=== PATIENT | male | born 1970 | race Hispanic/Latino ===

== ENCOUNTER 2018-04-16 03:43 | Inpatient (IN) | payer OTHER ==
[2018-04-16 04:28] LABS: Basophils # (Auto) 0.1 K/mm3 (0.0-0.1); Basophils % (Auto) 2.4 % (0.0-1.8); Eosinophils # (Auto) 0.1 K/mm3 (0.0-0.4); Eosinophils % (Auto) 2.5 % (0.0-4.3); Hemoglobin 13.4 gm/dl (11.8-15.2); Lymphocytes # (Auto) 1.2 K/mm3 (1.2-5.4); Lymphocytes % (Auto) 21.3 % (13.4-35.0); Mean Corpuscular HGB Conc 34 % (32-34); Mean Corpuscular Hemoglobin 33 pg (28-32); Mean Corpuscular Volume 96 fl (84-94); Monocytes # (Auto) 0.6 K/mm3 (0.0-0.8); Monocytes % (Auto) 11.2 % (0.0-7.3); Red Blood Count 4.04 M/mm3 (3.65-5.03); Red Cell Distribution Width 15.4 % (13.2-15.2)
[2018-04-16 04:31] LABS: Platelet Count 69 K/mm3 (140-440)
[2018-04-16 04:47] LABS: BUN/Creatinine Ratio 9; Blood Urea Nitrogen 9 mg/dL (9-20); Calcium 9.9 mg/dL (8.4-10.2); Hemolysis Index 10
[2018-04-16] MEDS ORDERED: K-DUR PO ONE (07:11)
[2018-04-16] MEDS ORDERED: PEPCID IV ONE (07:19)
[2018-04-16] MEDS ORDERED: NACL 0.9% 250ML 250 ML IV ONE (07:19)
[2018-04-16] MEDS ORDERED: ALUM-MAG HYDROX-SIMETH 200-200-20MG/5ML PO ONE (07:19)
--- NOTE | 2018-04-16 07:21 | Emergency Department Report ---
ED General Adult HPI - General Chief complaint: Weakness Stated complaint: ABDOMINAL PAIN Time Seen by Provider: 04/16/18 07:10 Source: patient, RN notes reviewed Mode of arrival: Ambulatory Limitations: No Limitations - History of Present Illness Initial comments: This is a 47-year-old male who is unknown to this provider previously. He has a past medical history of hepatitis C. He reports abdominal surgery in 2016 but does not know what he had. He doesn't know why he had the surgery either. He presents to the ER with a complaint of abdominal pain that radiates up to the chest. It has been present for at least 16 hours. It is constant. It has no exacerbating or relieving factors. He denies vomiting, diaphoresis, shortness of breath. The patient further indicates that he walked a few miles yesterday to get to the emergency room. He denies DVT, pulmonary embolus risk factors. He also endorses that he doesn't have a safe place to go. He denies urinary symptoms. -: Gradual Location: chest, back, abdomen Consistency: intermittent Improves with: none Worsens with: none Associated Symptoms: chest pain, loss of appetite, malaise, weakness. denies: confusion - Related Data Allergies Allergy/AdvReac Type Severity Reaction Status Date / Time No Known Allergies Allergy Unverified 04/16/18 04:05 ED Review of Systems ROS: Stated complaint: ABDOMINAL PAIN Other details as noted in HPI Constitutional: malaise Eyes: denies: eye discharge ENT: denies: epistaxis Respiratory: denies: cough Cardiovascular: chest pain Gastrointestinal: abdominal pain Genitourinary: denies: dysuria Musculoskeletal: arthralgia Neurological: weakness Psychiatric: anxiety ED Past Medical Hx - Past Medical History Hx Liver Disease: Yes Additional medical history: HEP C - Surgical History Additional Surgical History: ABD SURGERY 2016 - Social History Smoking Status: Former Smoker ED Physical Exam - General Limitations: No Limitations General appearance: alert, in no apparent distress - Head Head exam: Present: atraumatic, normocephalic - Eye Eye exam: Present: normal appearance, EOMI. Absent: nystagmus - ENT ENT exam: Present: normal exam, normal orophraynx, mucous membranes moist, normal external ear exam - Neck Neck exam: Present: normal inspection, full ROM. Absent: tenderness, meningismus - Respiratory Respiratory exam: Present: normal lung sounds bilaterally. Absent: respiratory distress - Cardiovascular Cardiovascular Exam: Present: regular rate, normal rhythm, normal heart sounds. Absent: bradycardia, tachycardia, irregular rhythm, systolic murmur, diastolic murmur, rubs, gallop - GI/Abdominal GI/Abdominal exam: Present: soft, other (there is a midline ventral scar, consistent with prior surgical history). Absent: distended, tenderness, guarding, rebound, rigid, pulsatile mass - Rectal Rectal exam: Present: deferred - Extremities Exam Extremities exam: Present: normal inspection, full ROM, normal capillary refill , other (2+ pulses noted in the bilateral upper, lower extremities. Compartments soft. No long bony tenderness. The pelvis is stable.). Absent: tenderness, pedal edema, joint swelling, calf tenderness - Back Exam Back exam: Present: normal inspection, full ROM. Absent: tenderness, CVA tenderness (R), paraspinal tenderness, vertebral tenderness - Neurological Exam Neurological exam: Present: alert, oriented X3, CN II-XII intact, other ( Extraocular movements intact. Tongue midline. No facial droop. Facial sensation intact to light touch in the V1, V2, V3 distribution bilaterally. 5 and 5 strength in 4 extremities.. Sensation is intact to light touch in 4 extremities.). Absent: motor sensory deficit - Psychiatric Psychiatric exam: Present: anxious - Skin Skin exam: Present: warm, dry, intact, normal color. Absent: rash ED Course Vital Signs 04/16/18 04/16/18 03:43 03:59 Temperature 98.3 F 98.3 F Pulse Rate 80 67 Respiratory 18 Rate Blood Pressure 148/96 148/96 O2 Sat by Pulse 100 98 Oximetry - Reevaluation(s) Reevaluation #1: 04/16/18 09:02 CT scan of the chest is negative for acute disease. CT scan of the abdomen and pelvis demonstrates incidental biliary stones, no evidence of cholecystitis, an incidental iliac stenosis. There is no acute inflammatory process noted. Given his abnormal EKG, lack of ability to reliably follow-up, multiple electrolyte abnormalities, he will be admitted to the hospital for cardiac risk stratification and electrolyte replacement. His liver function test abnormalities are appreciated, and these are most likely a function of his underlying liver disease, and the natural history of his presumed poorly managed or inadequately managed hepatitis C. His medical records are pending at this time. The hospital physician, Dr. Rob Lemon, will admit the patient for the aforementioned medical issues. ED Medical Decision Making - Lab Data Result diagrams: 04/16/18 04:11 04/16/18 04:11 Vital Signs 04/16/18 04/16/18 03:43 03:59 Temperature 98.3 F 98.3 F Pulse Rate 80 67 Respiratory 18 Rate Blood Pressure 148/96 148/96 O2 Sat by Pulse 100 98 Oximetry Labs 04/16/18 04/16/18 04/16/18 04:11 04:11 04:11 WBC 5.7 RBC 4.04 Hgb 13.4 Hct 39.0 MCV 96 H MCH 33 H MCHC 34 RDW 15.4 H Plt Count 69 L Lymph % (Auto) 21.3 Sebastian % (Auto) 11.2 H Eos % (Auto) 2.5 Baso % (Auto) 2.4 H Lymph # 1.2 Sebastian # 0.6 Eos # 0.1 Baso # 0.1 Seg Neutrophils % 62.6 Seg Neutrophils # 3.6 PT INR APTT Sodium 143 Potassium 2.5 L* Chloride 97.7 L Carbon Dioxide 29 Anion Gap 19 BUN 9 Creatinine 1.0 Estimated GFR > 60 BUN/Creatinine Ratio 9 Glucose 115 H Calcium 9.9 Magnesium Total Bilirubin Direct Bilirubin Indirect Bilirubin AST ALT Alkaline Phosphatase Total Creatine Kinase 471 H Troponin T < 0.010 Total Protein Albumin Albumin/Globulin Ratio Lipase Acetaminophen 04/16/18 04/16/18 04/16/18 07:17 07:17 07:17 WBC RBC Hgb Hct MCV MCH MCHC RDW Plt Count Lymph % (Auto) Sebastian % (Auto) Eos % (Auto) Baso % (Auto) Lymph # Sebastian # Eos # Baso # Seg Neutrophils % Seg Neutrophils # PT 21.6 H INR 1.76 H APTT 41.3 H Sodium Potassium Chloride Carbon Dioxide Anion Gap BUN Creatinine Estimated GFR BUN/Creatinine Ratio Glucose Calcium Magnesium 1.50 L Total Bilirubin 5.10 H Direct Bilirubin 1.6 H Indirect Bilirubin 3.5 AST 48 H ALT 19 Alkaline Phosphatase 79 Total Creatine Kinase Troponin T Total Protein 6.0 L Albumin 3.3 L Albumin/Globulin Ratio 1.2 Lipase 40 Acetaminophen < 5.0 L - EKG Data -: EKG Interpreted by Ut EKG shows normal: sinus rhythm Rate: normal - EKG Data When compared to previous EKG there are: previous EKG unavailable 04/16/18 08:20 Normal sinus, 60 beats per minute, QTC prolonged, normal axis, poor R wave progression, ST depression in diffuse leads. - Radiology Data Radiology results: pending - Medical Decision Making Differential diagnosis, including but not limited to: Acute coronary syndrome, hepatocellular carcinoma, had a construction, hepatitis C, pulmonary embolus, malnutrition, electrolyte derangement Assessment and plan: 47-year-old male with a complaint of abdominal pain and chest pain. We do not know what abdominal surgery he had. We are attempting to obtain his old medical records. His physical exam is benign. His EKG is abnormal without prior for comparison. Patient indicates that he is homeless, and is therefore not able to follow up for outpatient cardiac risk stratification. Laboratory studies demonstrate hypokalemia, hypomagnesemia, malnutrition, elevated coagulopathic parameters, suggestive of hepatic dysfunction, elevated direct and indirect bilirubin, also suggestive of hepatocellular dysfunction and possible obstruction versus malignancy. CT scan of the chest, abdomen, pelvis is pending. He will be treated with nonnarcotic nonsedating medications. We will reassess. Critical care attestation.: If time is entered above; I have spent that time in minutes in the direct care of this critically ill patient, excluding procedure time. ED Disposition Clinical Impression: Hypokalemia, Hypomagnesemia, Abnormal EKG Chest pain Qualifiers: Chest pain type: other chest pain Qualified Code(s): R07.89 - Other chest pain ; R07.8 - Other chest pain Disposition: OP ADMIT IP TO THIS HOSP Is pt being admited?: Yes Does the pt Need Aspirin: Yes Condition: Good Instructions: Chest Pain (ED) Referrals: PRIMARY CARE, [Primary Care Provider] - 3-5 Days
[2018-04-16 07:45] LABS: Albumin 3.3 g/dL (3.9-5); Bilirubin,Direct 1.6 mg/dL (0-0.2); INR 1.76 (0.87-1.13)
[2018-04-16 07:46] LABS: Partial Thromboplastin Time 41.3 Sec. (24.2-36.6)
[2018-04-16] MEDS ORDERED: MAGNESIUM SULFATE 2GM/50ML 2 GM/50 ML BAG IV ONE ×2 (08:16→17:17)
--- NOTE | 2018-04-16 08:54 | Cat Scan Report ---
CTA CHEST: HISTORY: chest pain. COMPARISON: none. TECHNIQUE: Helical CT in 1.25mm intervals following IV contrast. Pulmonary embolus protocol. Sagittal and coronal reformatted images. Rotational MIP images. FINDINGS: Contrast bolus is satisfactory. No pulmonary embolus is identified. Thyroid gland: Normal. Tracheobronchial tree: Normal. Esophagus: Normal. Heart: Normal. Pericardium: Normal. Mediastinum: Normal. Lung Dum[place]: Mild emphysematous changes are identified in the upper lobes. No infiltrate or mass. Pleural Spaces: Intact. Mild thoracic spondylosis. Musculoskeletal: Normal. IMPRESSION: No evidence for pulmonary embolus. Mild emphysematous changes.
--- NOTE | 2018-04-16 08:57 | Cat Scan Report ---
CT ABDOMEN PELVIS WITH CONTRAST: HISTORY: abdominal pain. COMPARISON: none. TECHNIQUE: Helical CT in 1.25mm intervals following IV contrast. Sagittal and coronal reconstructions. FINDINGS: Liver: Normal. Biliary system: Multiple calcified gallstones are identified. No evidence for biliary dilatation or inflammation. Pancreas: Normal. Spleen: Normal. Kidneys/ureters/bladder: Normal. Adrenal glands: Normal. Aorta: Moderate calcific plaques are identified in the distal aorta and common iliac arteries. There appears to be moderate stenosis of the distal aorta and right common iliac artery estimated at 75% or greater. Intestines: Unremarkable given no oral contrast was administered. Appendix: Normal. Pelvic viscera: Normal. Ascites: None. Adenopathy: None. Musculoskeletal: Intact. Moderate to severe degenerative disc disease is noted at L5-S1. IMPRESSION: No acute process is identified in the abdomen or pelvis. Cholelithiasis. Atherosclerotic disease in the distal and right common iliac artery as described.
[2018-04-16] MEDS ORDERED: MAGNESIUM SULFATE 2 GM in NACL 0.9% 50 ML IV ONE ×2 (09:00→18:00)
[2018-04-16] MEDS: KCL 10MEQ/100ML 10 MEQ/100 ML BAG IV SCH ×7 (09:01→23:30)
[2018-04-16] MEDS ORDERED: BABY ASPIRIN PO ONE (09:05)
[2018-04-16] MEDS ORDERED: ZOFRAN IV PRN (10:30)
[2018-04-16] MEDS ORDERED: SODIUM CHLORIDE FLUSH SYRINGE 10 ML IV PRN (10:30)
[2018-04-16] MEDS ORDERED: TYLENOL PO PRN (10:30)
--- NOTE | 2018-04-16 10:33 | History and Physical Report ---
History of Present Illness Date of examination: 04/16/18 Date of admission: 04/16/18 Chief complaint: abdominal pain radiating to the chest bilaterally History of present illness: Patient is a 47 year old male with past medical hx of Hepatitis C and liver disease, with extensive work up at an outside local hospital, also with hx of abdominal surgery who presented to the ED with complaints of bilateral abdominal flank to mid abdomen pains, rates it a 5/10 in intensity with no aggravating or alleviating symptoms but radiates to chest. He denies any fever, vomiting but reports sensation of nausea. Patient also states that he is homeless with no place to go on discharged He denies associated shortness of breath. on arrival to the ED imaging studies of the abdomen was consistent with etoh liver disease. Past History Past Medical History: hepatitis (c), hyperlipidemia, liver disease, other Past Surgical History: Other (abdominal pain) Social history: alcohol abuse (ex), full code. denies: smoking, prescription drug abuse, IV drug use Family history: no significant family history Medications and Allergies Allergies Allergy/AdvReac Type Severity Reaction Status Date / Time No Known Allergies Allergy Unverified 04/16/18 04:05 Home Medications Medication Instructions Recorded Confirmed Last Taken Type No Known Home Medications [No 04/16/18 04/16/18 Unknown History Reported Home Medications] Active Meds: Active Medications Acetaminophen (Tylenol) 650 mg PO Q4H PRN PRN Reason: Pain MILD(1-3)/Fever >100.5/MART Potassium Chloride (Kcl 10meq/100ml) 10 meq in 100 mls @ 100 mls/hr IV Q1H ANTON Stop: 04/16/18 12:59 Last Admin: 04/16/18 09:01 Dose: 100 mls/hr Magnesium Sulfate 2 gm/ Sodium (Chloride) 54 mls @ 25 mls/hr IV ONCE ONE Stop: 04/16/18 11:09 Last Admin: 04/16/18 09:40 Dose: 25 mls/hr Morphine Sulfate (Morphine) 2 mg IV Q4H PRN PRN Reason: Pain, Moderate (4-6) Ondansetron HCl (Zofran) 4 mg IV Q8H PRN PRN Reason: Nausea And Vomiting Sodium Chloride (Sodium Chloride Flush Syringe 10 Ml) 10 ml IV BID ANTON Sodium Chloride (Sodium Chloride Flush Syringe 10 Ml) 10 ml IV PRN PRN PRN Reason: LINE FLUSH Review of Systems All systems: negative Constitutional: weakness Eyes: left: diplopia Cardiovascular: chest pain Gastrointestinal: abdominal pain, nausea Integumentary: deferred Exam - Constitutional Vitals: Temp Pulse Resp BP Pulse Ox 98.3 F 67 18 148/96 98 04/16/18 03:59 04/16/18 03:59 04/16/18 03:43 04/16/18 03:59 04/16/18 03:59 Results - Labs CBC & Chem 7: 04/16/18 04:11 04/16/18 15:06 Labs: Laboratory Last Values WBC 5.7 K/mm3 (4.5-11.0) 04/16/18 04:11 RBC 4.04 M/mm3 (3.65-5.03) 04/16/18 04:11 Hgb 13.4 gm/dl (11.8-15.2) 04/16/18 04:11 Hct 39.0 % (35.5-45.6) 04/16/18 04:11 MCV 96 fl (84-94) H 04/16/18 04:11 MCH 33 pg (28-32) H 04/16/18 04:11 MCHC 34 % (32-34) 04/16/18 04:11 RDW 15.4 % (13.2-15.2) H 04/16/18 04:11 Plt Count 69 K/mm3 (140-440) L 04/16/18 04:11 Lymph % (Auto) 21.3 % (13.4-35.0) 04/16/18 04:11 [place] % (Auto) 11.2 % (0.0-7.3) H 04/16/18 04:11 Eos % (Auto) 2.5 % (0.0-4.3) 04/16/18 04:11 Baso % (Auto) 2.4 % (0.0-1.8) H 04/16/18 04:11 Lymph # 1.2 K/mm3 (1.2-5.4) 04/16/18 04:11 [place] # 0.6 K/mm3 (0.0-0.8) 04/16/18 04:11 Eos # 0.1 K/mm3 (0.0-0.4) 04/16/18 04:11 Baso # 0.1 K/mm3 (0.0-0.1) 04/16/18 04:11 Seg Neutrophils % 62.6 % (40.0-70.0) 04/16/18 04:11 Seg Neutrophils # 3.6 K/mm3 (1.8-7.7) 04/16/18 04:11 PT 21.6 Sec. (12.2-14.9) H 04/16/18 07:17 INR 1.76 (0.87-1.13) H 04/16/18 07:17 APTT 41.3 Sec. (24.2-36.6) H 04/16/18 07:17 Sodium 143 mmol/L (137-145) 04/16/18 04:11 Potassium 2.5 mmol/L (3.6-5.0) L* 04/16/18 04:11 Chloride 97.7 mmol/L (98-107) L 04/16/18 04:11 Carbon Dioxide 29 mmol/L (22-30) 04/16/18 04:11 Anion Gap 19 mmol/L 04/16/18 04:11 BUN 9 mg/dL (9-20) 04/16/18 04:11 Creatinine 1.0 mg/dL (0.8-1.5) 04/16/18 04:11 Estimated GFR > 60 ml/min 04/16/18 04:11 BUN/Creatinine Ratio 9 % 04/16/18 04:11 Glucose 115 mg/dL (75-100) H 04/16/18 04:11 Calcium 9.9 mg/dL (8.4-10.2) 04/16/18 04:11 Magnesium 1.50 mg/dL (1.7-2.3) L 04/16/18 07:17 Total Bilirubin 5.10 mg/dL (0.1-1.2) H 04/16/18 07:17 Direct Bilirubin 1.6 mg/dL (0-0.2) H 04/16/18 07:17 Indirect Bilirubin 3.5 mg/dL 04/16/18 07:17 AST 48 units/L (5-40) H 04/16/18 07:17 ALT 19 units/L (7-56) 04/16/18 07:17 Alkaline Phosphatase 79 units/L (35-129) 04/16/18 07:17 Total Creatine Kinase 471 units/L (55-170) H 04/16/18 04:11 Troponin T < 0.010 ng/mL (0.00-0.029) 04/16/18 04:11 Total Protein 6.0 g/dL (6.3-8.2) L 04/16/18 07:17 Albumin 3.3 g/dL (3.9-5) L 04/16/18 07:17 Albumin/Globulin Ratio 1.2 % 04/16/18 07:17 Lipase 40 units/L (13-60) 04/16/18 07:17 Acetaminophen < 5.0 ug/mL (10.0-30.0) L 04/16/18 07:17 Assessment and Plan Assessment and plan: Patient is a 47 year old male with past medical hx of Hepatitis C and liver disease, with extensive work up at an outside local hospital, also with hx of abdominal surgery who presented to the ED with complaints of bilateral abdominal flank to mid abdomen pains, rates it a 5/10 in intensity with no aggravating or alleviating symptoms but radiates to chest. He denies any fever, vomiting but reports sensation of nausea. Patient also states that he is homeless with no place to go on discharged He denies associated shortness of breath. on arrival to the ED imaging studies of the abdomen was consistent with etoh liver disease. concern of ST depression led to Cardiology consultation and i will discuss for the Rehab. Did she say its ok for you to leave. Abdominal pain - abdomen CT with no acute process Passive Hepatic replace. Chest pain - Padma negative for AMI x 1; chest CTA negative for PE Abnormal ECG Hypokalemia / hypomag Hepatitis C Former ETOH abuse Medical noncompliance Plan: Cont to trend Padma. Repeat ECG in AM. Electrolyte replacement No current plans for ischemic evaluation. Replace electrolytes and repeat labs in AM. Assessment and plan reviewed with pt at bedside. The patient has been seen in conjunction with Dr. Howard who agrees with the assessment and plan of care. Advance Directives: Yes Plan of care discussed with patient/family: Yes
[2018-04-16] MEDS: MORPHINE IV PRN ×2 (10:57→21:57)
--- NOTE | 2018-04-16 11:46 | Consultation ---
History of Present Illness Consult date: 04/16/18 Requesting physician: ALMAS HAYWOOD Consult reason: chest pain History of present illness: The pt is a 47-year-old male with a past medical history significant for hepatitis C, "liver failure", former ETOH abuse. He reports abdominal surgery in 2016 but does not know what he had. He is unsure why he presented to ED. He is homeless and states that he was sitting down on a bench this AM when he was approached by police and brought to the ED. He does admit to abdominal pain which radiates into the substernal area. He has not taken any prescription medications for over 2 years as he cannot afford his medications. He is a rather poor historian and provides no additional details. Past History Past Medical History: other (hepatitis, "liver failure" ) Past Surgical History: Other (abdominal surgery in 2016 but does not know what he had) Social history: alcohol abuse (former), other (homeless). denies: smoking, prescription drug abuse, IV drug use Medications and Allergies Allergies Allergy/AdvReac Type Severity Reaction Status Date / Time No Known Allergies Allergy Unverified 04/16/18 04:05 Home Medications Medication Instructions Recorded Confirmed Last Taken Type No Known Home Medications [No 04/16/18 04/16/18 Unknown History Reported Home Medications] Active Meds: Active Medications Acetaminophen (Tylenol) 650 mg PO Q4H PRN PRN Reason: Pain MILD(1-3)/Fever >100.5/MART Potassium Chloride (Kcl 10meq/100ml) 10 meq in 100 mls @ 100 mls/hr IV Q1H ANTON Stop: 04/16/18 12:59 Last Admin: 04/16/18 11:00 Dose: 100 mls/hr Morphine Sulfate (Morphine) 2 mg IV Q4H PRN PRN Reason: Pain, Moderate (4-6) Last Admin: 04/16/18 10:57 Dose: 2 mg Ondansetron HCl (Zofran) 4 mg IV Q8H PRN PRN Reason: Nausea And Vomiting Last Admin: 04/16/18 10:56 Dose: 4 mg Sodium Chloride (Sodium Chloride Flush Syringe 10 Ml) 10 ml IV BID ANTON Sodium Chloride (Sodium Chloride Flush Syringe 10 Ml) 10 ml IV PRN PRN PRN Reason: LINE FLUSH Review of Systems Constitutional: no weight loss, no weight gain, no fever, no chills, no sweats Ears, nose, mouth and throat: no ear pain, no nose pain, no sinus pressure, no sinus pain Cardiovascular: chest pain, no orthopnea, no palpitations, no rapid/irregular heart beat, no edema, no syncope, no lightheadedness, no shortness of breath, no dyspnea on exertion Respiratory: no cough, no shortness of breath, no dyspnea on exertion, no congestion, no wheezing, no pain on inspiration Gastrointestinal: abdominal pain, no nausea, no vomiting, no diarrhea, no constipation Genitourinary Male: no dysuria, no hematuria, no flank pain, no discharge, no urinary frequency, no urinary hesitancy Musculoskeletal: no neck stiffness, no neck pain, no shooting arm pain, no arm numbness/tingling, no low back pain Integumentary: no rash, no pruritis, no redness, no sores, no wounds Psychiatric: no anxiety Endocrine: no cold intolerance, no heat intolerance Hematologic/Lymphatic: no easy bruising, no easy bleeding, no lymphadenopathy Allergic/Immunologic: no urticaria, no wheezing, no persistent infections Physical Examination Vital Signs Temp Pulse Resp BP Pulse Ox 98.3 F 80 18 148/96 100 04/16/18 03:43 04/16/18 03:43 04/16/18 03:43 04/16/18 03:43 04/16/18 03:43 General appearance: no acute distress HEENT: Positive: PERRL, Normocephaly, Mucus Membranes Moist Neck: Positive: neck supple, trachea midline Cardiac: Positive: Reg Rate and Rhythm, S1/S2 Lungs: Positive: clear to auscultation Neuro: Positive: Grossly Intact Abdomen: Positive: Active Bowel Sounds Skin: Negative: Rash Musculoskeletal: No Fluid Collection, Normal Range of Motion Extremities: Absent: edema Results 04/16/18 04:11 04/16/18 04:11 Cardiac Enzymes 04/16/18 Range/Units 07:17 AST 48 H (5-40) units/L Coagulation 04/16/18 Range/Units 07:17 PT 21.6 H (12.2-14.9) Sec. INR 1.76 H (0.87-1.13) APTT 41.3 H (24.2-36.6) Sec. CBC 04/16/18 Range/Units 04:11 WBC 5.7 (4.5-11.0) K/mm3 RBC 4.04 (3.65-5.03) M/mm3 Hgb 13.4 (11.8-15.2) gm/dl Hct 39.0 (35.5-45.6) % Plt Count 69 L (140-440) K/mm3 Lymph # 1.2 (1.2-5.4) K/mm3 [place] # 0.6 (0.0-0.8) K/mm3 Eos # 0.1 (0.0-0.4) K/mm3 Baso # 0.1 (0.0-0.1) K/mm3 Comprehensive Metabolic Panel 04/16/18 04/16/18 Range/Units 04:11 07:17 Sodium 143 (137-145) mmol/L Potassium 2.5 L* (3.6-5.0) mmol/L Chloride 97.7 L (98-107) mmol/L Carbon Dioxide 29 (22-30) mmol/L BUN 9 (9-20) mg/dL Creatinine 1.0 (0.8-1.5) mg/dL Glucose 115 H (75-100) mg/dL Calcium 9.9 (8.4-10.2) mg/dL Direct Bilirubin 1.6 H (0-0.2) mg/dL Indirect Bilirubin 3.5 mg/dL AST 48 H (5-40) units/L ALT 19 (7-56) units/L Alkaline Phosphatase 79 (35-129) units/L Total Protein 6.0 L (6.3-8.2) g/dL Albumin 3.3 L (3.9-5) g/dL - Imaging and Cardiology EKG: report reviewed, image reviewed EKG interpretations - Telemetry EKG Rhythm: Sinus Rhythm - EKG Sinus rhythms and dysrhythmias: sinus rhythm Repolarization changes or abnormalities: ST or T wave suggestive of ischemia Assessment and Plan Assessment: Abdominal pain - abdomen CT with no acute process Chest pain - Padma negative for AMI x 1; chest CTA negative for PE Abnormal ECG Hypokalemia / hypomag Hepatitis C Former ETOH abuse Medical noncompliance Plan: Cont to trend Padma. Repeat ECG in AM. No current plans for ischemic evaluation. Replace electrolytes and repeat labs in AM. Assessment and plan reviewed with pt at bedside. The patient has been seen in conjunction with Dr. Howard who agrees with the assessment and plan of care.
[2018-04-16] MEDS ORDERED: NACL 0.9% 1000 ML 1,000 ML ONE (13:54)
[2018-04-16 15:40] LABS: BUN/Creatinine Ratio 10; Blood Urea Nitrogen 9 mg/dL (9-20); Calcium 8.7 mg/dL (8.4-10.2); Hemolysis Index 4
[2018-04-16] MEDS ORDERED: KCL 10MEQ/100ML 10 MEQ/100 ML BAG IV ONE (16:09)
[2018-04-16 18:00] LABS: Bilirubin,Urine NEG (Negative); Blood,Urine NEG (Negative); Color,Urine Yellow (Yellow); Protein,Urine <15 mg/dL mg/dL (Negative); RBC,Urine < 1.0 /HPF (0.0-6.0)
[2018-04-16] MEDS: SODIUM CHLORIDE FLUSH SYRINGE 10 ML IV SCH (21:57)
--- NOTE | 2018-04-16 22:54 | Progress Note ---
Assessment and Plan Assessment and plan: Patient is a 47 year old male with past medical hx of Hepatitis C and liver disease, with extensive work up at an outside local hospital, also with hx of abdominal surgery who presented to the ED with complaints of bilateral abdominal flank to mid abdomen pains, rates it a 5/10 in intensity with no aggravating or alleviating symptoms but radiates to chest. He denies any fever, vomiting but reports sensation of nausea. Patient also states that he is homeless with no place to go on discharged He denies associated shortness of breath. on arrival to the ED imaging studies of the abdomen was consistent with etoh liver disease. concern of ST depression led to Cardiology consultation and i will discuss for the Rehab. Did she say its ok for you to leave. 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 cleared by cardiology, no further work up stress test was canceled by cardiology Pain control Replace K and magnesium today Discussed extensively need for outpatient follow up including hematology follow up dvt/gi prophy Avoid NSAIDS and antiplatelets Discharge in am if remains stable History Interval history: Patient seen and examined today in acute distress resting comfortably still with mild abdominal pain. Hospitalist Physical - Physical exam Narrative exam: VITAL SIGNS: Reviewed. GENERAL: The patient appeared well nourished and normally developed. Vital signs as documented. HEAD: No signs of head trauma. EYES: Pupils are equal. Extraocular motions intact. EARS: Hearing grossly intact. MOUTH: Oropharynx is normal. NECK: No adenopathy, no JVD. CHEST: Chest with clear breath sounds bilaterally. No wheezes, rales, or rhonchi. CARDIAC: Regular rate and rhythm. S1 and S2, without murmurs, gallops, or rubs. VASCULAR: No Edema. Peripheral pulses normal and equal in all extremities. ABDOMEN: Soft, tender, well-healed surgical scar. Keloids present. No sign of distention. No rebound or guarding, and no masses palpated. Bowel Sounds normal. MUSCULOSKELETAL: Good range of motion of all major joints. Extremities without clubbing, cyanosis or edema. NEUROLOGIC EXAM: Alert and oriented x 3. No focal sensory or strength deficits. Speech normal. Follows commands. PSYCHIATRIC: Mood normal. SKIN: No rash or lesions. - Constitutional Vitals: Temp Pulse Resp BP Pulse Ox 98.3 F 54 L 18 118/54 98 04/16/18 19:27 04/16/18 19:27 04/16/18 19:27 04/16/18 19:27 04/16/18 19:27 General appearance: Present: no acute distress Results - Labs CBC & Chem 7: 04/17/18 05:29 04/17/18 14:40 Labs: Laboratory Last Values WBC 5.7 K/mm3 (4.5-11.0) 04/16/18 04:11 RBC 4.04 M/mm3 (3.65-5.03) 04/16/18 04:11 Hgb 13.4 gm/dl (11.8-15.2) 04/16/18 04:11 Hct 39.0 % (35.5-45.6) 04/16/18 04:11 MCV 96 fl (84-94) H 04/16/18 04:11 MCH 33 pg (28-32) H 04/16/18 04:11 MCHC 34 % (32-34) 04/16/18 04:11 RDW 15.4 % (13.2-15.2) H 04/16/18 04:11 Plt Count 69 K/mm3 (140-440) L 04/16/18 04:11 Lymph % (Auto) 21.3 % (13.4-35.0) 04/16/18 04:11 [place] % (Auto) 11.2 % (0.0-7.3) H 04/16/18 04:11 Eos % (Auto) 2.5 % (0.0-4.3) 04/16/18 04:11 Baso % (Auto) 2.4 % (0.0-1.8) H 04/16/18 04:11 Lymph # 1.2 K/mm3 (1.2-5.4) 04/16/18 04:11 [place] # 0.6 K/mm3 (0.0-0.8) 04/16/18 04:11 Eos # 0.1 K/mm3 (0.0-0.4) 04/16/18 04:11 Baso # 0.1 K/mm3 (0.0-0.1) 04/16/18 04:11 Seg Neutrophils % 62.6 % (40.0-70.0) 04/16/18 04:11 Seg Neutrophils # 3.6 K/mm3 (1.8-7.7) 04/16/18 04:11 PT 21.6 Sec. (12.2-14.9) H 04/16/18 07:17 INR 1.76 (0.87-1.13) H 04/16/18 07:17 APTT 41.3 Sec. (24.2-36.6) H 04/16/18 07:17 Sodium 140 mmol/L (137-145) 04/16/18 15:06 Potassium 2.9 mmol/L (3.6-5.0) L* 04/16/18 15:06 Chloride 98.4 mmol/L (98-107) 04/16/18 15:06 Carbon Dioxide 28 mmol/L (22-30) 04/16/18 15:06 Anion Gap 17 mmol/L 04/16/18 15:06 BUN 9 mg/dL (9-20) 04/16/18 15:06 Creatinine 0.9 mg/dL (0.8-1.5) 04/16/18 15:06 Estimated GFR > 60 ml/min 04/16/18 15:06 BUN/Creatinine Ratio 10 % 04/16/18 15:06 Glucose 160 mg/dL (75-100) H 04/16/18 15:06 Calcium 8.7 mg/dL (8.4-10.2) 04/16/18 15:06 Magnesium 1.50 mg/dL (1.7-2.3) L 04/16/18 07:17 Total Bilirubin 5.10 mg/dL (0.1-1.2) H 04/16/18 07:17 Direct Bilirubin 1.6 mg/dL (0-0.2) H 04/16/18 07:17 Indirect Bilirubin 3.5 mg/dL 04/16/18 07:17 AST 48 units/L (5-40) H 04/16/18 07:17 ALT 19 units/L (7-56) 04/16/18 07:17 Alkaline Phosphatase 79 units/L (35-129) 04/16/18 07:17 Total Creatine Kinase 544 units/L (55-170) H 04/16/18 13:40 CK-MB (CK-2) 10.0 ng/mL (0.0-4.0) H 04/16/18 13:40 CK-MB (CK-2) Rel Index 1.8 (0-4) 04/16/18 13:40 Troponin T < 0.010 ng/mL (0.00-0.029) 04/16/18 13:40 Total Protein 6.0 g/dL (6.3-8.2) L 04/16/18 07:17 Albumin 3.3 g/dL (3.9-5) L 04/16/18 07:17 Albumin/Globulin Ratio 1.2 % 04/16/18 07:17 Lipase 40 units/L (13-60) 04/16/18 07:17 Urine Color Yellow (Yellow) 04/16/18 17:30 Urine Turbidity Clear (Clear) 04/16/18 17:30 Urine pH 6.0 (5.0-7.0) 04/16/18 17:30 Ur Specific [place] 1.031 (1.003-1.030) H 04/16/18 17:30 Urine Protein <15 mg/dl mg/dL (Negative) 04/16/18 17:30 Urine Glucose (UA) Neg mg/dL (Negative) 04/16/18 17:30 Urine Ketones Neg mg/dL (Negative) 04/16/18 17:30 Urine Blood Neg (Negative) 04/16/18 17:30 Urine Nitrite Neg (Negative) 04/16/18 17:30 Urine Bilirubin Neg (Negative) 04/16/18 17:30 Urine Urobilinogen 4.0 mg/dL (<2.0) 04/16/18 17:30 Ur Leukocyte Esterase Neg (Negative) 04/16/18 17:30 Urine WBC (Auto) 1.0 /HPF (0.0-6.0) 04/16/18 17:30 Urine RBC (Auto) < 1.0 /HPF (0.0-6.0) 04/16/18 17:30 Acetaminophen < 5.0 ug/mL (10.0-30.0) L 04/16/18 07:17 - Imaging and Cardiology CT scan - abdomen: image reviewed (cholelithasis)
[2018-04-17] MEDS: KCL 10MEQ/100ML 10 MEQ/100 ML BAG IV SCH ×7 (00:30→19:26)
[2018-04-17 06:10] LABS: Hematocrit 34.4 % (35.5-45.6); Hemoglobin 11.7 gm/dl (11.8-15.2); Mean Corpuscular HGB Conc 34 % (32-34); Mean Corpuscular Hemoglobin 33 pg (28-32); Mean Corpuscular Volume 97 fl (84-94); Red Blood Count 3.56 M/mm3 (3.65-5.03); Red Cell Distribution Width 15.7 % (13.2-15.2)
[2018-04-17 06:12] LABS: Platelet Count 51 K/mm3 (140-440)
[2018-04-17 06:31] LABS: BUN/Creatinine Ratio 10; Blood Urea Nitrogen 9 mg/dL (9-20); Calcium 8.3 mg/dL (8.4-10.2); Hemolysis Index 3
[2018-04-17 07:04] LABS: Platelet Estimate Appears Decreased; Total Cells Counted 50
[2018-04-17] MEDS ORDERED: MAGNESIUM SULFATE IV ONE (10:31)
[2018-04-17] MEDS ORDERED: MAGNESIUM SULFATE 1 GM in NACL 0.9% 50 ML IV ONE (11:00)
--- NOTE | 2018-04-17 11:26 | Progress Note ---
Assessment and Plan Assessment: Abdominal pain - abdomen CT with no acute process Chest pain - currently resolved; Padma negative for AMI; chest CTA negative for PE Abnormal ECG - improving Hypokalemia / hypomag - improving Hepatitis C Former ETOH abuse Medical noncompliance Plan: Padma negative for AMI. ECG normalizing. No current plans for ischemic evaluation. Cont electrolyte replacement per primary. Currently stable cardiac status. Pt may discharge home from cardiology standpoint. Recommend follow up in our office with Bekah Monsalve NP, within 2 weeks of hospital discharge ([phone]). Assessment and plan reviewed with pt at bedside. The patient has been seen in conjunction with Dr. Howard who agrees with the assessment and plan of care. Subjective Date of service: 04/17/18 Principal diagnosis: abdominal pain Interval history: pt resting comfortably in bed, states he is feeling better today. denies any current chest pain. still c/o abdominal pain but reports this pain is improving. Objective Last Vital Signs Temp 98.2 F 04/17/18 05:36 Pulse 60 04/17/18 05:36 Resp 18 04/17/18 05:36 BP 97/59 04/17/18 05:36 Pulse Ox 96 04/17/18 05:36 - Physical Examination General: No Apparent Distress HEENT: Positive: PERRL, Normocephaly, Mucus Membranes Moist Neck: Positive: neck supple, trachea midline Cardiac: Positive: Reg Rate and Rhythm, S1/S2 Lungs: Positive: clear to auscultation Neuro: Positive: Grossly Intact Abdomen: Positive: Active Bowel Sounds Skin: Negative: Rash Musculoskeletal: No Fluid Collection, Normal Range of Motion Extremities: Absent: edema - Labs and Meds Cardiac Enzymes 04/16/18 Range/Units 13:40 CK-MB (CK-2) 10.0 H (0.0-4.0) ng/mL CBC 04/17/18 Range/Units 05:29 WBC 2.5 L (4.5-11.0) K/mm3 RBC 3.56 L (3.65-5.03) M/mm3 Hgb 11.7 L (11.8-15.2) gm/dl Hct 34.4 L (35.5-45.6) % Plt Count 51 L (140-440) K/mm3 Comprehensive Metabolic Panel 04/16/18 04/17/18 Range/Units 15:06 05:29 Sodium 140 144 (137-145) mmol/L Potassium 2.9 L* 3.0 L (3.6-5.0) mmol/L Chloride 98.4 105.5 (98-107) mmol/L Carbon Dioxide 28 27 (22-30) mmol/L BUN 9 9 (9-20) mg/dL Creatinine 0.9 0.9 (0.8-1.5) mg/dL Glucose 160 H 95 (75-100) mg/dL Calcium 8.7 8.3 L (8.4-10.2) mg/dL - Imaging and Cardiology EKG: report reviewed, image reviewed - EKG Sinus rhythms and dysrhythmias: sinus rhythm Repolarization changes or abnormalities: ST or T wave suggestive of ischemia
[2018-04-17] MEDS: SODIUM CHLORIDE FLUSH SYRINGE 10 ML IV SCH (11:37)
[2018-04-17 11:43] LABS: Albumin 3.4 g/dL (3.9-5); Bilirubin,Direct 1.2 mg/dL (0-0.2)
[2018-04-17] MEDS: MORPHINE IV PRN (17:45)
[2018-04-17] MEDS ORDERED: K-DUR PO ONE (20:20)
[2018-04-18] MEDS: MORPHINE IV PRN (04:54)
[2018-04-18 05:14] LABS: Hematocrit 32.7 % (35.5-45.6); Hemoglobin 11.4 gm/dl (11.8-15.2); Mean Corpuscular HGB Conc 35 % (32-34); Mean Corpuscular Hemoglobin 34 pg (28-32); Mean Corpuscular Volume 97 fl (84-94); Red Blood Count 3.37 M/mm3 (3.65-5.03); Red Cell Distribution Width 15.6 % (13.2-15.2)
[2018-04-18 05:19] LABS: Platelet Count 51 K/mm3 (140-440)
[2018-04-18 05:36] LABS: Alanine Aminotransferase 19 units/L (7-56); BUN/Creatinine Ratio 11; Blood Urea Nitrogen 8 mg/dL (9-20); Calcium 8.1 mg/dL (8.4-10.2); Hemolysis Index 2
[2018-04-18] MEDS ORDERED: MAGNESIUM SULFATE IV ONE (10:07)
--- NOTE | 2018-04-18 10:13 | Discharge Summary ---
Providers - Providers Date of Admission: 04/16/18 10:30 Attending physician: ALMAS HAYWOOD MD 04/16/18 07:21 Consult to Case Management [CONS] Stat Services Needed at Discharge: Home Health Services Notified:: needs placement 04/16/18 10:30 Consult to Physician [CONS] Routine Comment: Consulting Provider: ANGIE AGUIRRE Physician Instructions: Reason For Exam: chest pain Primary care physician: MENTAL HEALTH COORDINATOR Hospitalization Reason for admission: CHEST PAIN Condition: Stable Hospital course: Patient is a 47 year old male with past medical hx of Hepatitis C and liver disease, with extensive work up at an outside local hospital, also with hx of abdominal surgery who presented to the ED with complaints of bilateral abdominal flank to mid abdomen pains, rates it a 5/10 in intensity with no aggravating or alleviating symptoms but radiates to chest. He denies any fever, vomiting but reports sensation of nausea. Patient also states that he is homeless with no place to go on discharged He denies associated shortness of breath. on arrival to the ED imaging studies of the abdomen was consistent with etoh liver disease. concern of ST depression led to Cardiology consultation and i will discuss for the Rehab. Patient was seen is by cardiology and recommended electrolyte replacement which was done,. Patient was noted to be pancytopenic. this appears to be new since 2017. He never the less has no bleeding abnormalities noted or melanotic stool at this time. I have instructed him to follow at the community clinic and case management is also providing community resources. Clinically he is immproved and ready for discharge. Potasisium and magnesium was replaced in detail He verbalized no alcohol for the last two years and we encouraged continued abstaince, 18 mins spent on counselling. 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 Peritoneal irratation Abnormal ECG Refractory Hypokalemia / hypomag Hepatitis C Former ETOH abuse Medical noncompliance Disposition: DC-01 TO HOME OR SELFCARE Time spent for discharge: 35 MINS Core Measure Documentation - Palliative Care Palliative Care/ Comfort Measures: Not Applicable - Core Measures Any of the following diagnoses?: none - VTE Discharge Requirements Deep Vein Thrombosis/Pulmonary Embolism Present on Admission: No Exam - Physical Exam Narrative exam: VITAL SIGNS: Reviewed. GENERAL: The patient appeared well nourished and normally developed. Vital signs as documented. HEAD: No signs of head trauma. EYES: Pupils are equal. Extraocular motions intact. EARS: Hearing grossly intact. MOUTH: Oropharynx is normal. NECK: No adenopathy, no JVD. CHEST: Chest with clear breath sounds bilaterally. No wheezes, rales, or rhonchi. CARDIAC: Regular rate and rhythm. S1 and S2, without murmurs, gallops, or rubs. VASCULAR: No Edema. Peripheral pulses normal and equal in all extremities. ABDOMEN: Soft, tender, well-healed surgical scar. Keloids present. No sign of distention. No rebound or guarding, and no masses palpated. Bowel Sounds normal. MUSCULOSKELETAL: Good range of motion of all major joints. Extremities without clubbing, cyanosis or edema. NEUROLOGIC EXAM: Alert and oriented x 3. No focal sensory or strength deficits. Speech normal. Follows commands. PSYCHIATRIC: Mood normal. SKIN: No rash or lesions. - Constitutional Vitals: Temp Pulse Resp BP Pulse Ox 98.4 F 51 L 18 111/58 97 04/18/18 05:43 04/18/18 05:43 04/18/18 05:43 04/18/18 05:43 04/18/18 05:43 Plan Activity: advance as tolerated, fall precautions Diet: low fat Special Instructions: record daily weights, record daily BP diary, record blood sugar diary, other (MUST AVOID ETOH) Follow up with: BRANNON KO MD [Staff Physician] - 7 Days PRIMARY CARE,MD [Primary Care Provider] - 3-5 Days CHEYENNE SWAIN NP [Advanced Practice Nurse] - 7 Days Prescriptions: Potassium Chloride [K-Dur] 20 meq PO QDAY #30 tablet
[2018-04-18] MEDS: K-DUR PO SCH ×2 (11:57→14:42)
[2018-04-18] MEDS: SODIUM CHLORIDE FLUSH SYRINGE 10 ML IV SCH (11:58)
[2018-04-18] MEDS ORDERED: MAGNESIUM SULFATE 1 GM in NACL 0.9% 50 ML IV ONE (12:00)
[2018-04-18 12:29] VITALS: BP 104/55
== END 2018-04-18 15:00 | disposition home or self-care (01) | DRG 808 ==
LOC: ED 03:43 → 3A 10:30
PROVIDERS: ADMIT Internal Medicine; ATTEND Internal Medicine
DX: D61.818 Other pancytopenia (principal); K65.9 Peritonitis, unspecified; N39.0 Urinary tract infection, site not specified; E87.6 Hypokalemia; K72.90 Hepatic failure, unspecified without coma; B19.20 Unspecified viral hepatitis C without hepatic coma; E83.42 Hypomagnesemia; R07.89 Other chest pain; E78.5 Hyperlipidemia, unspecified; K70.30 Alcoholic cirrhosis of liver without ascites; F10.10 Alcohol abuse, uncomplicated; K76.1 Chronic passive congestion of liver; Z87.891 Personal history of nicotine dependence; Z91.14 Patient's other noncompliance with medication regimen; Z59.0 Homelessness
CPT/HCPCS: 36415; 71275; 74177; 80048; 80053; 80074; 80320; 81001; 82550; 82553; 83690; 83735; 84132; 84484; 85007; 85025; 85027; 85610; 85730; 93005; 93010; 96361; 96365; 96375; G0480; J2270; J2405; J3475; J3480; J7030; J7050; Q9967

== ENCOUNTER 2022-05-20 09:05 | Inpatient (IN) | payer SELFPAY ==
[2022-05-20] MEDS ORDERED: LACTULOSE 20 GM/30 ML ORAL LIQD PO ONE (09:32)
[2022-05-20] MEDS ORDERED: dilTIAZem 25 MG/5 ML INJ IV ONE (10:41)
[2022-05-20 10:49] LABS: Basophils % (Auto) 0.8 % (0.0-1.8); Eosinophils % (Auto) 0.7 % (0.0-4.3); Hemoglobin 16.1 gm/dl (11.8-15.2); Lymphocytes # (Auto) 1.4 K/mm3 (1.2-5.4); Lymphocytes % (Auto) 32.3 % (13.4-35.0); Mean Corpuscular HGB Conc 35 % (32-34); Mean Corpuscular Volume 99 fl (84-94); Monocytes # (Auto) 0.4 K/mm3 (0.0-0.8); Monocytes % (Auto) 8.7 % (0.0-7.3); Red Blood Count 4.64 M/mm3 (3.65-5.03); Red Cell Distribution Width 14.2 % (13.2-15.2)
--- NOTE | 2022-05-20 11:11 | XRay Report ---
CHEST 1 VIEW 05/20/2022 8:50 AM INDICATION / CLINICAL INFORMATION: Altered Mental Status. COMPARISON: None available. FINDINGS: SUPPORT DEVICES: None. HEART / MEDIASTINUM: No significant abnormality. LUNGS / PLEURA: No significant pulmonary or pleural abnormality. No pneumothorax. ADDITIONAL FINDINGS: No significant additional findings. IMPRESSION: 1. No acute findings. Signer Name: Carlo Greene MD Signed: 05/20/2022 11:07 AM Workstation Name: [id number]
[2022-05-20 11:15] LABS: INR 1.48 (0.87-1.13); Platelet Count 92 K/mm3 (140-440)
[2022-05-20 11:21] LABS: Alanine Aminotransferase 24 units/L (7-56); Albumin 3.3 g/dL (3.9-5); BUN/Creatinine Ratio 8; Blood Urea Nitrogen 7 mg/dL (9-20); Calcium 10.6 mg/dL (8.4-10.2); Hemolysis Index 7
[2022-05-20] MEDS ORDERED: LACTULOSE ENEMA 1000 ML PR ONE ×2 (12:51→13:51)
--- NOTE | 2022-05-20 12:55 | History and Physical Report ---
History of Present Illness Chief complaint: He is getting worse History of present illness: 51 YO Male with HCV, HLD, Cirrhosis, End Stage Liver Disease secondary to ETOH Dependence, PSA presents to ED for evaluation. Patient is confused and lethargic, nonverbal and is unable to provide history. Patient history provided by EMS staff ED staff, as well as the patient's mother who is his caregiver and is at bedside during exam and interview. As per the patient's mother that the patient had experienced increased weakness and confusion over the past 3 months. Patient is currently bedbound, nonambulatory and nonverbal and requires 6/6 assistance with activities of daily living. Patient has a palliative form form score of 30%. Patient has a prognosis of 6 months or less if the illness runs its expected course. Patient has diminished oral intake and has experienced weight loss of 15 pounds over the past 1 month. EMS was notified and upon arrival the patient was found to be in distress and simply transported to [facility] for further care and evaluation of the aforementioned symptoms. The patient was seen and evaluated in the emergency department. All lab and imaging studies reviewed. Patient found to have hepatic encephalopathy secondary to end-stage liver disease, hyperammonemia, hypokalemia. Patient admitted to medical floor due due to increased risk for worsening symptoms and for medical stabilization. Patient has diminished cognition at time of my evaluation but has a positive gag reflex and is able to protect his airway without difficulty. Prior admission on 04/16/2018 reviewed. No medication listed at time of admission for reconciliation. Advanced care planning conducted in ED. Past History Past Medical History: hyperlipidemia, other (See HPI) Past Surgical History: bowel surgery Social history: single. denies: smoking, alcohol abuse, prescription drug abuse Family history: hypertension Medications and Allergies Allergies Allergy/AdvReac Type Severity Reaction Status Date / Time No Known Allergies Allergy Unverified 05/20/22 09:16 Home Medications Medication Instructions Recorded Confirmed Last Taken Type Potassium Chloride [K-Dur] 20 meq PO QDAY #30 tablet 04/18/18 Unknown Rx Active Meds: Active Medications Potassium Chloride (Kcl 10meq/100ml) 10 meq in 100 mls @ 100 mls/hr IV Q1H [place] Stop: 05/20/22 16:59 Lactulose (Lactulose Enema 1000 Ml) 60 gm RI ONCE ONE Stop: 05/20/22 13:52 Review of Systems ROS unobtainable: due to mental status Exam - Constitutional Vitals: Temp Pulse Resp BP Pulse Ox 97.7 F 122 H 20 121/76 98 05/20/22 09:30 05/20/22 11:10 05/20/22 11:10 05/20/22 11:10 05/20/22 11:10 General appearance: Present: mild distress, cachectic - EENT Eyes: Present: scleral icterus ENT: hearing decreased - Neck Neck: Present: supple, normal ROM - Respiratory Respiratory effort: normal Respiratory: bilateral: diminished - Cardiovascular Rhythm: regular Heart Sounds: Present: S1 & S2 - Extremities Extremities: no ischemia Peripheral Pulses: within normal limits - Abdominal General gastrointestinal: Present: soft, non-tender, non-distended, hepatomegaly Male genitourinary: Present: normal - Integumentary Integumentary: Present: dry, jaundice, clammy, decreased turgor - Musculoskeletal Musculoskeletal: generalized weakness - Psychiatric Psychiatric: no appropriate mood/affect, no intact judgment & insight, no memory intact - Neurologic Neurologic: CNII-XII intact, no focal deficits, moves all extremities, no gait normal HEART Score - HEART Score Troponin: Troponin T < 0.010 ng/mL (0.00-0.029) 05/20/22 09:57 Results - Labs CBC & Chem 7: 05/20/22 09:57 05/20/22 09:57 Labs: Abnormal lab results 05/20/22 05/20/22 05/20/22 Range/Units 09:57 09:57 09:57 WBC 4.2 L (4.5-11.0) K/mm3 Hgb 16.1 H (11.8-15.2) gm/dl Hct 46.0 H (35.5-45.6) % MCV 99 H (84-94) fl MCH 35 H (28-32) pg MCHC 35 H (32-34) % Plt Count 92 L (140-440) K/mm3 [place] % (Auto) 8.7 H (0.0-7.3) % PT 19.7 H (12.2-14.9) Sec. INR 1.48 H (0.87-1.13) Potassium (3.6-5.0) mmol/L BUN (9-20) mg/dL Glucose (75-100) mg/dL Lactic Acid 3.90 H* (0.7-2.0) mmol/L Calcium (8.4-10.2) mg/dL Total Bilirubin (0.1-1.2) mg/dL AST (5-40) units/L Alkaline Phosphatase (35-129) units/L Ammonia (25-60) umol/L Total Creatine Kinase (55-170) units/L Albumin (3.9-5) g/dL Salicylates (2.8-20.0) mg/dL Acetaminophen (10.0-30.0) ug/mL 05/20/22 05/20/22 05/20/22 Range/Units 09:57 09:57 09:57 WBC (4.5-11.0) K/mm3 Hgb (11.8-15.2) gm/dl Hct (35.5-45.6) % MCV (84-94) fl MCH (28-32) pg MCHC (32-34) % Plt Count (140-440) K/mm3 [place] % (Auto) (0.0-7.3) % PT (12.2-14.9) Sec. INR (0.87-1.13) Potassium 2.2 L* (3.6-5.0) mmol/L BUN 7 L (9-20) mg/dL Glucose 132 H (75-100) mg/dL Lactic Acid (0.7-2.0) mmol/L Calcium 10.6 H (8.4-10.2) mg/dL Total Bilirubin 10.40 H (0.1-1.2) mg/dL AST 49 H (5-40) units/L Alkaline Phosphatase 150 H (35-129) units/L Ammonia 129.0 H (25-60) umol/L Total Creatine Kinase 186 H (55-170) units/L Albumin 3.3 L (3.9-5) g/dL Salicylates < 0.3 L (2.8-20.0) mg/dL Acetaminophen (10.0-30.0) ug/mL 05/20/22 Range/Units 09:57 WBC (4.5-11.0) K/mm3 Hgb (11.8-15.2) gm/dl Hct (35.5-45.6) % MCV (84-94) fl MCH (28-32) pg MCHC (32-34) % Plt Count (140-440) K/mm3 [place] % (Auto) (0.0-7.3) % PT (12.2-14.9) Sec. INR (0.87-1.13) Potassium (3.6-5.0) mmol/L BUN (9-20) mg/dL Glucose (75-100) mg/dL Lactic Acid (0.7-2.0) mmol/L Calcium (8.4-10.2) mg/dL Total Bilirubin (0.1-1.2) mg/dL AST (5-40) units/L Alkaline Phosphatase (35-129) units/L Ammonia (25-60) umol/L Total Creatine Kinase (55-170) units/L Albumin (3.9-5) g/dL Salicylates (2.8-20.0) mg/dL Acetaminophen 5.0 L (10.0-30.0) ug/mL Assessment and Plan - Patient Problems (1) Hepatic encephalopathy Current Visit: Yes Status: Acute Plan to address problem: Secondary to end-stage liver disease. Supportive care, continue medical management. (2) Encephalopathy due to ammonia Current Visit: Yes Status: Acute (3) End stage liver disease Current Visit: Yes Status: Acute Plan to address problem: Supportive care. Symptom management. (4) Malnutrition Current Visit: Yes Status: Acute Qualifiers: Protein-calorie malnutrition severity: moderate Plan to address problem: Increase protein intake when awake and alert only, dietary supplementation. (5) Hyperammonemia Current Visit: Yes Status: Acute Plan to address problem: Lactulose, repeat ammonia level in AM. (6) Hypokalemia Current Visit: Yes Status: Acute Plan to address problem: Repleted in ED. (7) DVT prophylaxis Current Visit: Yes Status: Acute Plan to address problem: SCD to bilateral lower extremities while in bed (8) Advance care planning Current Visit: Yes Status: Acute Plan to address problem: Disease education done, care plan discussed, diagnoses discussed, prognosis discussed. Patient remains full code at this time. Patient mother informed of prognosis. Patient mother acknowledges understanding and agreement with care plan. Patient mother requests home hospice care. Home hospice kidney team notified as per patient mother request. (9) Preventative health care Current Visit: Yes Status: Acute Plan to address problem: Patient mother counseled regarding home safety precautions, end-of-life care. +30 minutes.
--- NOTE | 2022-05-20 12:55 | Emergency Department Report ---
ED Altered Mental Status HPI - General Chief Complaint: Altered Mental Status Stated Complaint: AMS Time Seen by Provider: 05/20/22 09:27 Source: EMS Mode of arrival: Stretcher Limitations: Altered Mental Status - History of Present Illness Initial Comments: t here with AMS since 1700, yesterday 05/19/22, lives with grandmother, not on any meds pt has history of liver disease , hasn;t seen a doctor for 3 years since joseph [facility]NA Complaint: altered mental status, decreased responsiveness -: unknown Severity: severe Consistency of Symptoms: getting worse Context: alcohol abuse, liver disease Associated Symptoms: malaise, difficulty walking. denies: denies other symptoms, chest pain - Related Data Previous Rx's Medication Instructions Recorded Last Taken Type Potassium Chloride [K-Dur] 20 meq PO QDAY #30 tablet 04/18/18 Unknown Rx Allergies Allergy/AdvReac Type Severity Reaction Status Date / Time No Known Allergies Allergy Unverified 05/20/22 09:16 ED Review of Systems ROS: Stated complaint: AMS Other details as noted in HPI Comment: Unobtainable due to pts medical conditions ED Past Medical Hx - Past Medical History Hx Liver Disease: Yes Additional medical history: HEP C, cirrhosis of liver - Surgical History Additional Surgical History: ABD SURGERY 2016 - Social History Smoking Status: Never Smoker Substance Use Type: None - Medications Home Medications: Home Medications Medication Instructions Recorded Confirmed Last Taken Type Potassium Chloride [K-Dur] 20 meq PO QDAY #30 tablet 04/18/18 Unknown Rx ED Physical Exam - General Limitations: Altered Mental Status General appearance: lethargic, other (jaundice) - Head Head exam: Present: atraumatic, normocephalic - Eye Eye exam: Present: normal appearance, other (jaundice) - ENT ENT exam: Present: mucous membranes moist - Neck Neck exam: Present: normal inspection - Respiratory Respiratory exam: Present: normal lung sounds bilaterally. Absent: respiratory distress - Cardiovascular Cardiovascular Exam: Present: normal rhythm, tachycardia, irregular rhythm. Absent: systolic murmur, diastolic murmur, rubs, gallop - GI/Abdominal GI/Abdominal exam: Present: soft, normal bowel sounds - Rectal Rectal exam: Present: deferred - Extremities Exam Extremities exam: Present: normal inspection - Back Exam Back exam: Present: normal inspection - Expanded Neurological Exam Expanded Neurological exam: Present: innattentive Best Eye Response (Cayla): (2) open to pain Best Motor Response (Cayla): (4) withdraws to pain Best Verbal Response (Cayla): (2) incomprehsible sounds Cayla Total: 8 - Psychiatric Psychiatric exam: Present: normal mood - Skin Skin exam: Absent: rash - Expanded Skin Exam Expanded Description of rash: Present: other (jaundice) ED Course Vital Signs 05/20/22 05/20/22 05/20/22 09:11 09:30 09:48 Temperature 97.8 F 97.7 F Pulse Rate 116 H 136 H 136 H Respiratory 18 20 20 Rate Blood Pressure 152/100 Blood Pressure 162/80 152/100 164/92 [Left] O2 Sat by Pulse 98 100 100 Oximetry 05/20/22 05/20/22 10:47 11:10 Temperature Pulse Rate 146 H 122 H Respiratory 20 Rate Blood Pressure 147/104 Blood Pressure 121/76 [Left] O2 Sat by Pulse 98 Oximetry - Lab Data Result diagrams: 05/20/22 09:57 05/20/22 09:57 Lab Results 05/20/22 05/20/22 05/20/22 Range/Units 09:57 09:57 09:57 WBC 4.2 L (4.5-11.0) K/mm3 RBC 4.64 (3.65-5.03) M/mm3 Hgb 16.1 H (11.8-15.2) gm/dl Hct 46.0 H (35.5-45.6) % MCV 99 H (84-94) fl MCH 35 H (28-32) pg MCHC 35 H (32-34) % RDW 14.2 (13.2-15.2) % Plt Count 92 L (140-440) K/mm3 Lymph % (Auto) 32.3 (13.4-35.0) % Gem % (Auto) 8.7 H (0.0-7.3) % Eos % (Auto) 0.7 (0.0-4.3) % Baso % (Auto) 0.8 (0.0-1.8) % Lymph # (Auto) 1.4 (1.2-5.4) K/mm3 Gem # (Auto) 0.4 (0.0-0.8) K/mm3 Eos # (Auto) 0.0 (0.0-0.4) K/mm3 Baso # (Auto) 0.0 (0.0-0.1) K/mm3 Seg Neutrophils % 57.5 (40.0-70.0) % Seg Neutrophils # 2.4 (1.8-7.7) K/mm3 PT 19.7 H (12.2-14.9) Sec. INR 1.48 H (0.87-1.13) Sodium (137-145) mmol/L Potassium (3.6-5.0) mmol/L Chloride (98-107) mmol/L Carbon Dioxide (22-30) mmol/L Anion Gap mmol/L BUN (9-20) mg/dL Creatinine (0.8-1.3) mg/dL Estimated GFR ml/min BUN/Creatinine Ratio % Glucose (75-100) mg/dL Lactic Acid 3.90 H* (0.7-2.0) mmol/L Calcium (8.4-10.2) mg/dL Total Bilirubin (0.1-1.2) mg/dL AST (5-40) units/L ALT (7-56) units/L Alkaline Phosphatase (35-129) units/L Ammonia (25-60) umol/L Total Creatine Kinase (55-170) units/L Troponin T (0.00-0.029) ng/mL Total Protein (6.3-8.2) g/dL Albumin (3.9-5) g/dL Albumin/Globulin Ratio % Salicylates (2.8-20.0) mg/dL Acetaminophen (10.0-30.0) ug/mL Plasma/Serum Alcohol (0-0.07) % 05/20/22 05/20/22 05/20/22 Range/Units 09:57 09:57 09:57 WBC (4.5-11.0) K/mm3 RBC (3.65-5.03) M/mm3 Hgb (11.8-15.2) gm/dl Hct (35.5-45.6) % MCV (84-94) fl MCH (28-32) pg MCHC (32-34) % RDW (13.2-15.2) % Plt Count (140-440) K/mm3 Lymph % (Auto) (13.4-35.0) % Gem % (Auto) (0.0-7.3) % Eos % (Auto) (0.0-4.3) % Baso % (Auto) (0.0-1.8) % Lymph # (Auto) (1.2-5.4) K/mm3 Gem # (Auto) (0.0-0.8) K/mm3 Eos # (Auto) (0.0-0.4) K/mm3 Baso # (Auto) (0.0-0.1) K/mm3 Seg Neutrophils % (40.0-70.0) % Seg Neutrophils # (1.8-7.7) K/mm3 PT (12.2-14.9) Sec. INR (0.87-1.13) Sodium 143 (137-145) mmol/L Potassium 2.2 L* (3.6-5.0) mmol/L Chloride 100.7 (98-107) mmol/L Carbon Dioxide 27 (22-30) mmol/L Anion Gap 18 mmol/L BUN 7 L (9-20) mg/dL Creatinine 0.9 (0.8-1.3) mg/dL Estimated GFR > 60 ml/min BUN/Creatinine Ratio 8 % Glucose 132 H (75-100) mg/dL Lactic Acid (0.7-2.0) mmol/L Calcium 10.6 H (8.4-10.2) mg/dL Total Bilirubin 10.40 H (0.1-1.2) mg/dL AST 49 H (5-40) units/L ALT 24 (7-56) units/L Alkaline Phosphatase 150 H (35-129) units/L Ammonia 129.0 H (25-60) umol/L Total Creatine Kinase 186 H (55-170) units/L Troponin T < 0.010 (0.00-0.029) ng/mL Total Protein 8.1 (6.3-8.2) g/dL Albumin 3.3 L (3.9-5) g/dL Albumin/Globulin Ratio 0.7 % Salicylates < 0.3 L (2.8-20.0) mg/dL Acetaminophen (10.0-30.0) ug/mL Plasma/Serum Alcohol (0-0.07) % 05/20/22 05/20/22 Range/Units 09:57 09:57 WBC (4.5-11.0) K/mm3 RBC (3.65-5.03) M/mm3 Hgb (11.8-15.2) gm/dl Hct (35.5-45.6) % MCV (84-94) fl MCH (28-32) pg MCHC (32-34) % RDW (13.2-15.2) % Plt Count (140-440) K/mm3 Lymph % (Auto) (13.4-35.0) % Gem % (Auto) (0.0-7.3) % Eos % (Auto) (0.0-4.3) % Baso % (Auto) (0.0-1.8) % Lymph # (Auto) (1.2-5.4) K/mm3 Gem # (Auto) (0.0-0.8) K/mm3 Eos # (Auto) (0.0-0.4) K/mm3 Baso # (Auto) (0.0-0.1) K/mm3 Seg Neutrophils % (40.0-70.0) % Seg Neutrophils # (1.8-7.7) K/mm3 PT (12.2-14.9) Sec. INR (0.87-1.13) Sodium (137-145) mmol/L Potassium (3.6-5.0) mmol/L Chloride (98-107) mmol/L Carbon Dioxide (22-30) mmol/L Anion Gap mmol/L BUN (9-20) mg/dL Creatinine (0.8-1.3) mg/dL Estimated GFR ml/min BUN/Creatinine Ratio % Glucose (75-100) mg/dL Lactic Acid (0.7-2.0) mmol/L Calcium (8.4-10.2) mg/dL Total Bilirubin (0.1-1.2) mg/dL AST (5-40) units/L ALT (7-56) units/L Alkaline Phosphatase (35-129) units/L Ammonia (25-60) umol/L Total Creatine Kinase (55-170) units/L Troponin T (0.00-0.029) ng/mL Total Protein (6.3-8.2) g/dL Albumin (3.9-5) g/dL Albumin/Globulin Ratio % Salicylates (2.8-20.0) mg/dL Acetaminophen 5.0 L (10.0-30.0) ug/mL Plasma/Serum Alcohol < 0.01 (0-0.07) % - EKG Data -: EKG Interpreted by Me Interpretation: other (afib rvr) - Radiology Data Radiology results: report reviewed, image reviewed - Medical Decision Making work up showed : - Jaundice : 2r to liver failure, and hep c and etoh - Afib rvr : cardiazem given - ammonia : lactulose given Critical care attestation.: If time is entered above; I have spent that time in minutes in the direct care of this critically ill patient, excluding procedure time. ED Disposition Clinical Impression: Hypokalemia, Encephalopathy due to ammonia, Liver failure, Jaundice, Altered mental status, Atrial fibrillation with RVR Disposition: ADMITTED INPATIENT Is pt being admited?: Yes Does the pt Need Aspirin: No Condition: Fair Referrals: PRIMARY CARE, [Primary Care Provider] - 3-5 Days
[2022-05-20] MEDS: POTASSIUM CHLORIDE 10 MEQ 10 MEQ/100 ML BAG IV SCH ×6 (13:02→22:23)
[2022-05-20] MEDS ORDERED: HYDROmorphone 0.5 MG/0.5 ML INJ IV PRN (13:20)
[2022-05-20] MEDS ORDERED: ONDANSETRON 4 MG/2 ML INJ IV PRN (13:20)
[2022-05-20] MEDS ORDERED: ALBUTEROL 2.5 MG/3 ML NEBU IH PRN (13:20)
[2022-05-20] MEDS ORDERED: oxyCODONE /ACETAMINOPHEN 5-325MG TAB PO PRN (13:20)
[2022-05-20] MEDS ORDERED: ACETAMINOPHEN 325 MG TAB PO PRN (13:20)
--- NOTE | 2022-05-20 13:28 | Procedure Note ---
Date of procedure: 05/20/22 Pre-op diagnosis: End-stage liver disease Post-op diagnosis: same Procedure: Right femoral vein triple-lumen catheter placed under ultrasound guidance After informed consent was obtained the patient was prepped and draped in the usual sterile fashion. A timeout was taken with the patient's nurse at bedside to verify the correct patient, the correct procedure, and correct operative site. Local anesthesia obtained with 1% lidocaine. Ultrasound was utilized to localize the right femoral vein. The Seldinger technique was utilized under ultrasound guidance to insert the seeker needle into the right femoral vein without difficulty. A guidewire was then advanced via the seeker needle into the right femoral vein and the seeker needle subsequently removed. A scalpel was used to incise the skin at the insertion site. A dilator was then passed over the guidewire into the right femoral vein and subsequently removed. A preflush triple-lumen catheter was then advanced over the guidewire into the right femoral vein and the guidewire subsequently removed. All 3 ports flush and drawl with ease. A Biopatch was placed at the insertion site. 3-0 silk suture was utilized to suture line in place. A sterile dressing was utilized to cover the triple-lumen insertion site. Estimated blood loss minimal. Complications none. Specimens none. Anesthesia: local Surgeon: NANCY HEDRICK Estimated blood loss: minimal Condition: stable Disposition: floor
[2022-05-21 02:01] LABS: Amphetamine Screen,Urine Negative; Benzodiazepines Screen,Urine Negative; Cannabinoid Screen,Urine Negative; Cocaine Screen,Urine Negative; Methadone Screen,Urine Negative; Opiate Screen,Urine Negative
[2022-05-21 02:02] LABS: Bacteria,Urine 1+ /HPF (Negative); Mucus,Urine FEW /HPF
[2022-05-21 02:17] LABS: Color,Urine Dark Yellow (Yellow)
[2022-05-21] MEDS ORDERED: LORazepam 2 MG/ML VIAL IV ONE (04:12)
[2022-05-21 05:55] LABS: Alanine Aminotransferase 18 units/L (7-56); Albumin 2.7 g/dL (3.9-5); BUN/Creatinine Ratio 13; Blood Urea Nitrogen 10 mg/dL (9-20); Calcium 9.7 mg/dL (8.4-10.2); Hemolysis Index 0
[2022-05-21] MEDS: LACTULOSE 20 GM/30 ML ORAL LIQD PO SCH ×2 (10:27→12:00)
[2022-05-21] MEDS: D5NS W/KCL 20 MEQ 20 MEQ/1,000 ML BAG IV SCH ×2 (10:27→10:50)
[2022-05-21] MEDS: POTASSIUM CHLORIDE 10 MEQ 10 MEQ/100 ML BAG IV SCH ×8 (10:27→22:49)
--- NOTE | 2022-05-21 11:34 | Progress Note ---
Assessment and Plan --Acute hypoxic respiratory failure Continue on nonrebreather, continue supportive care -- Hepatic encephalopathy Current Visit: Yes Status: Acute Plan to address problem: Secondary to end-stage liver disease. Supportive care, continue medical management. -- Encephalopathy due to hyperammonia Current Visit: Yes Status: Acute -- End stage liver disease Current Visit: Yes Status: Acute Plan to address problem: Supportive care. Symptom management. -- Malnutrition Current Visit: Yes Status: Acute Qualifiers: Protein-calorie malnutrition severity: moderate Plan to address problem: Increase protein intake when awake and alert only, dietary supplementation. -- Hyperammonemia Current Visit: Yes Status: Acute Plan to address problem: Lactulose, repeat ammonia level in AM. -- Hypokalemia Current Visit: Yes Status: Acute Plan to address problem: Replete, order Mg level -- DVT prophylaxis Current Visit: Yes Status: Acute Plan to address problem: SCD to bilateral lower extremities while in bed -- Advance care planning Current Visit: Yes Status: Acute Plan to address problem: Patient mother informed of prognosis. Patient mother acknowledges understanding and agreement with care plan. Patient mother requests home hospice care. Home hospice kidney team notified as per patient mother request. -- Preventative health care Current Visit: Yes Status: Acute Plan to address problem: Patient mother counseled regarding home safety precautions, end-of-life care. +30 minutes. -- Patient on nonrebreather with altered mental status. Discussed with patient and change CODE STATUS to DNR. pending hospice placement. Initiated D5 normal saline, replete potassium. Check magnesium level, check ammonia level. Hyper Subjective Date of service: 05/21/22 Interval history: Patient seen and examined on ventimask, lathergic discussed with family at bedside Family wants hospice and DNR code status vitals noted Objective - Constitutional Vitals: Vital Signs - 12hr 05/20/22 05/21/22 05/21/22 23:41 04:22 05:32 Temperature Pulse Rate 126 H 37 L Respiratory 18 20 22 Rate Blood Pressure 133/90 144/93 O2 Sat by Pulse 95 98 94 Oximetry 05/21/22 05/21/22 05/21/22 07:29 08:22 09:00 Temperature Pulse Rate Respiratory 26 H Rate Blood Pressure 128/81 O2 Sat by Pulse 90 97 Oximetry 05/21/22 05/21/22 11:28 11:29 Temperature 98.8 F Pulse Rate 146 H Respiratory Rate Blood Pressure 148/85 O2 Sat by Pulse 99 Oximetry General appearance: Present: disheveled - EENT Eyes: scleral icterus ENT: no thrush, no ulcerations Ears: bilateral: normal - Neck Neck: no masses or JVD - Respiratory Respiratory effort: normal Respiratory: bilateral: CTA - Cardiovascular Rhythm: regular Heart Sounds: Present: S1 & S2. Absent: gallop, rub Extremities: pulses intact, No edema, normal color - Gastrointestinal General gastrointestinal: Present: soft, non-tender, non-distended, normal bowel sounds - Integumentary Integumentary: clear, warm, dry - Neurologic Neurologic: other (altered and minimally responsive doesnot follow commend) - Psychiatric Psychiatric: no appropriate mood/affect, no intact judgment & insight, no memory intact - Labs CBC & Chem 7: 05/20/22 09:57 05/21/22 14:18 Labs: Abnormal lab results 05/20/22 05/20/22 05/21/22 Range/Units 16:10 20:49 01:30 Sodium (137-145) mmol/L Potassium (3.6-5.0) mmol/L Glucose (75-100) mg/dL POC Glucose 124 H 138 H (70-105) mg/dL Total Bilirubin (0.1-1.2) mg/dL Albumin (3.9-5) g/dL Urine WBC (Auto) 7.0 H (0.0-6.0) /HPF 05/21/22 05/21/22 Range/Units 04:00 07:13 Sodium 146 H (137-145) mmol/L Potassium 2.1 L* (3.6-5.0) mmol/L Glucose 137 H (75-100) mg/dL POC Glucose 139 H (70-105) mg/dL Total Bilirubin 10.90 H (0.1-1.2) mg/dL Albumin 2.7 L (3.9-5) g/dL Urine WBC (Auto) (0.0-6.0) /HPF HEART Score - HEART Score Troponin: Troponin T < 0.010 ng/mL (0.00-0.029) 05/20/22 09:57
[2022-05-21] MEDS ORDERED: cloNIDine TTS 0.2 MG/24 HR PATCH TD SCH (14:00)
[2022-05-21] MEDS: LACTULOSE ENEMA 1000 ML PR SCH (21:39)
[2022-05-22] MEDS: POTASSIUM CHLORIDE 10 MEQ 10 MEQ/100 ML BAG IV SCH ×3 (00:19→10:10)
[2022-05-22] MEDS ORDERED: POTASSIUM CHLORIDE 10 MEQ 10 MEQ/100 ML BAG IV SCH (01:00)
[2022-05-22] MEDS ORDERED: MAGNESIUM SULFATE 3 GM in SODIUM CHLORIDE 0.9% 100 ML IV ONE (01:00)
[2022-05-22] MEDS ORDERED: POTASSIUM CHLORIDE IV ONE (01:45)
[2022-05-22] MEDS ORDERED: SODIUM CHLORIDE 0.9% IV ONE (01:45)
[2022-05-22] MEDS ORDERED: MAGNESIUM SULFATE IV ONE (01:45)
[2022-05-22 06:33] LABS: BUN/Creatinine Ratio 15; Blood Urea Nitrogen 12 mg/dL (9-20); Calcium 9.9 mg/dL (8.4-10.2); Hemolysis Index 0
[2022-05-22] MEDS: LACTULOSE ENEMA 1000 ML PR SCH (06:34)
--- NOTE | 2022-05-22 09:52 | Progress Note ---
Assessment and Plan Assessment and plan: Acute hypoxic respiratory failure Hepatic encephalopathy End-stage liver disease Severe protein calorie malnutrition Hyperammonemia Severe hypokalemia 05/22/2022. Patient remains on nonrebreather with altered mentation. Dr. Whittaker reportedly discussed with family at bedside hospice and DNR CODE STATUS. Paperwork signed but order not placed in EMR. We will update records. Current IVF is d5NS with 20meq KCL. We will change IV fluid to half-normal saline 40 of KCl. Case management consult for hospice care. History Interval history: No new issues Hospitalist Physical - Constitutional Vitals: Temp Pulse Resp BP Pulse Ox 99.6 F 77 24 150/99 90 05/21/22 22:54 05/21/22 22:54 05/22/22 08:57 05/21/22 22:54 05/22/22 08:57 General appearance: Present: mild distress, disheveled - EENT Eyes: Present: PERRL, EOM intact ENT: hearing intact, clear oral mucosa, dentition normal - Neck Neck: Present: supple, normal ROM - Respiratory Respiratory effort: normal Respiratory: bilateral: CTA - Cardiovascular Rhythm: regular Heart Sounds: Present: S1 & S2. Absent: gallop, rub - Extremities Extremities: no ischemia, No edema, Full ROM - Abdominal General gastrointestinal: soft, non-tender, non-distended, normal bowel sounds - Integumentary Integumentary: Present: clear, warm, dry - Neurologic Neurologic: CNII-XII intact, moves all extremities HEART Score - HEART Score Troponin: Troponin T < 0.010 ng/mL (0.00-0.029) 05/20/22 09:57 Results - Labs CBC & Chem 7: 05/20/22 09:57 05/22/22 05:40 Labs: Laboratory Last Values WBC 4.2 K/mm3 (4.5-11.0) L 05/20/22 09:57 RBC 4.64 M/mm3 (3.65-5.03) 05/20/22 09:57 Hgb 16.1 gm/dl (11.8-15.2) H 05/20/22 09:57 Hct 46.0 % (35.5-45.6) H 05/20/22 09:57 MCV 99 fl (84-94) H 05/20/22 09:57 MCH 35 pg (28-32) H 05/20/22 09:57 MCHC 35 % (32-34) H 05/20/22 09:57 RDW 14.2 % (13.2-15.2) 05/20/22 09:57 Plt Count 92 K/mm3 (140-440) L 05/20/22 09:57 Lymph % (Auto) 32.3 % (13.4-35.0) 05/20/22 09:57 [place] % (Auto) 8.7 % (0.0-7.3) H 05/20/22 09:57 Eos % (Auto) 0.7 % (0.0-4.3) 05/20/22 09:57 Baso % (Auto) 0.8 % (0.0-1.8) 05/20/22 09:57 Lymph # (Auto) 1.4 K/mm3 (1.2-5.4) 05/20/22 09:57 [place] # (Auto) 0.4 K/mm3 (0.0-0.8) 05/20/22 09:57 Eos # (Auto) 0.0 K/mm3 (0.0-0.4) 05/20/22 09:57 Baso # (Auto) 0.0 K/mm3 (0.0-0.1) 05/20/22 09:57 Seg Neutrophils % 57.5 % (40.0-70.0) 05/20/22 09:57 Seg Neutrophils # 2.4 K/mm3 (1.8-7.7) 05/20/22 09:57 PT 19.7 Sec. (12.2-14.9) H 05/20/22 09:57 INR 1.48 (0.87-1.13) H 05/20/22 09:57 Sodium 150 mmol/L (137-145) H 05/22/22 05:40 Potassium 2.5 mmol/L (3.6-5.0) L* 05/22/22 05:40 Chloride 109.9 mmol/L (98-107) H 05/22/22 05:40 Carbon Dioxide 27 mmol/L (22-30) 05/22/22 05:40 Anion Gap 16 mmol/L 05/22/22 05:40 BUN 12 mg/dL (9-20) 05/22/22 05:40 Creatinine 0.8 mg/dL (0.8-1.3) 05/22/22 05:40 Estimated GFR > 60 ml/min 05/22/22 05:40 BUN/Creatinine Ratio 15 % 05/22/22 05:40 Glucose 140 mg/dL (75-100) H 05/22/22 05:40 POC Glucose 157 mg/dL (70-105) H 05/21/22 21:01 Lactic Acid 3.90 mmol/L (0.7-2.0) H* 05/20/22 09:57 Calcium 9.9 mg/dL (8.4-10.2) 05/22/22 05:40 Phosphorus 3.10 mg/dL (2.5-4.5) D 05/22/22 05:40 Magnesium 2.00 mg/dL (1.7-2.3) 05/22/22 05:40 Total Bilirubin 10.90 mg/dL (0.1-1.2) H 05/21/22 04:00 AST 36 units/L (5-40) 05/21/22 04:00 ALT 18 units/L (7-56) 05/21/22 04:00 Alkaline Phosphatase 123 units/L (35-129) 05/21/22 04:00 Ammonia 129.0 umol/L (25-60) H 05/20/22 09:57 Total Creatine Kinase 186 units/L (55-170) H 05/20/22 09:57 Troponin T < 0.010 ng/mL (0.00-0.029) 05/20/22 09:57 Total Protein 7.0 g/dL (6.3-8.2) 05/21/22 04:00 Albumin 2.7 g/dL (3.9-5) L 05/21/22 04:00 Albumin/Globulin Ratio 0.6 % 05/21/22 04:00 Urine Color Dark yellow (Yellow) 05/21/22 01:30 Urine Turbidity Clear (Clear) 05/21/22 01:30 Specific [place] (Man) 1.005 (1.003-1.030) 05/21/22 01:30 Ur Protein (Man) 1+ mg/dL (Negative) 05/21/22 01:30 Ur Ketones (Man) Negative (Negative) 05/21/22 01:30 Ur Nitrite (Man) Negative (Negative) 05/21/22 01:30 Ur Reducing Substances Not Reportable 05/21/22 01:30 Urine Bilirubin (Man) Negative (Negative) 05/21/22 01:30 Urine Ictotest Not Reportable 05/21/22 01:30 Leukocyte Esterase (Man) Small (Negative) 05/21/22 01:30 Urine WBC (Auto) 7.0 /HPF (0.0-6.0) H 05/21/22 01:30 Urine RBC (Auto) 1.0 /HPF (0.0-6.0) 05/21/22 01:30 U Epithel Cells (Auto) < 1.0 /HPF (0-13.0) 05/21/22 01:30 Urine Bacteria (Auto) 1+ /HPF (Negative) 05/21/22 01:30 Urine RBC (Manual) 1+ (Negative) 05/21/22 01:30 Urine Mucus Few /HPF 05/21/22 01:30 Salicylates < 0.3 mg/dL (2.8-20.0) L 05/20/22 09:57 Urine Opiates Screen Negative 05/21/22 01:30 Urine Methadone Screen Negative 05/21/22 01:30 Acetaminophen 5.0 ug/mL (10.0-30.0) L 05/20/22 09:57 Ur Barbiturates Screen Negative 05/21/22 01:30 Ur Phencyclidine Scrn Negative 05/21/22 01:30 Ur Amphetamines Screen Negative 05/21/22 01:30 U Benzodiazepines Scrn Negative 05/21/22 01:30 Urine Cocaine Screen Negative 05/21/22 01:30 U Marijuana (THC) Screen Negative 05/21/22 01:30 Drugs of Abuse Note Disclamer 05/21/22 01:30 Plasma/Serum Alcohol < 0.01 % (0-0.07) 05/20/22 09:57 Carmen/IV: Voiding Method Condom Catheter Active Medications - Current Medications Current Medications: Generic Name Dose Route Start Last Admin Trade Name Freq PRN Reason Stop Dose Admin Acetaminophen 650 mg 05/20/22 13:20 Acetaminophen 325 Mg Tab PO Q4H PRN Pain MILD(1-3)/Fever >100.5/MART Albuterol 2.5 mg 05/20/22 13:20 Albuterol 2.5 Mg/3 Ml Nebu IH Q4HRT PRN Shortness Of Breath Clonidine HCl 0.2 mg 05/21/22 14:00 05/21/22 15:26 Clonidine Tts 0.2 Mg/24 Hr Patch TD 0.2 mg Lim ANTON Administration Hydromorphone HCl 0.5 mg 05/20/22 13:20 Hydromorphone 0.5 Mg/0.5 Ml Inj IV Q3H PRN Pain , Severe (7-10) Potassium Chloride 10 meq in 100 mls @ 100 mls/hr 05/22/22 08:30 05/22/22 08:53 Kcl 10meq/100ml IV 05/22/22 10:29 100 mls/hr Q1H ANTON Administration Lactulose 200 gm 05/21/22 14:00 05/22/22 06:34 Lactulose Enema 1000 Ml FL 05/22/22 13:59 200 gm Q12H ANTON Administration Ondansetron HCl 4 mg 05/20/22 13:20 Ondansetron 4 Mg/2 Ml Inj IV Q8H PRN Nausea And Vomiting Oxycodone/Acetaminophen 1 tab 05/20/22 13:20 Oxycodone /Acetaminophen 5-325mg Tab PO Q6H PRN Pain, Moderate (4-6) Sodium Chloride 10 ml 05/20/22 22:00 05/22/22 09:06 Sodium Chloride 0.9% 10 Ml Flush Syringe IV 10 ml BID ANTON Administration Sodium Chloride 10 ml 05/20/22 13:20 Sodium Chloride 0.9% 10 Ml Flush Syringe IV PRN PRN LINE FLUSH
[2022-05-22] MEDS: POTASSIUM CHLORIDE 40 MEQ in SODIUM CHLORIDE 0.45% 1000 ML 1,000 ML IV SCH (12:07)
--- NOTE | 2022-05-22 16:49 | Electrocardiograph Report ---
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
[2022-05-23] MEDS: POTASSIUM CHLORIDE 40 MEQ in SODIUM CHLORIDE 0.45% 1000 ML 1,000 ML IV SCH (02:05)
[2022-05-23 06:10] LABS: Basophils % (Auto) 0.3 % (0.0-1.8); Hematocrit 39.9 % (35.5-45.6); Hemoglobin 13.9 gm/dl (11.8-15.2); Lymphocytes # (Auto) 1.5 K/mm3 (1.2-5.4); Lymphocytes % (Auto) 10.1 % (13.4-35.0); Mean Corpuscular HGB Conc 35 % (32-34); Mean Corpuscular Volume 102 fl (84-94); Monocytes # (Auto) 1.1 K/mm3 (0.0-0.8); Monocytes % (Auto) 7.5 % (0.0-7.3); Platelet Count 78 K/mm3 (140-440); Red Blood Count 3.91 M/mm3 (3.65-5.03); Red Cell Distribution Width 15.2 % (13.2-15.2)
[2022-05-23 06:31] LABS: BUN/Creatinine Ratio 15; Blood Urea Nitrogen 15 mg/dL (9-20); Hemolysis Index 0
[2022-05-23] MEDS: cefTRIAXone/NS 1 GM/50 ML 1 GM/50 ML BAG IV SCH (09:26)
[2022-05-23] MEDS: POTASSIUM CHLORIDE 10 MEQ 10 MEQ/100 ML BAG IV SCH ×7 (09:27→18:16)
[2022-05-23] MEDS ORDERED: MAGNESIUM SULFATE 1 GM in SODIUM CHLORIDE 0.9% 50 ML IV ONE (11:00)
[2022-05-23 15:27] LABS: BUN/Creatinine Ratio 15; Blood Urea Nitrogen 15 mg/dL (9-20); Calcium 9.8 mg/dL (8.4-10.2); Hemolysis Index 10
[2022-05-23] MEDS ORDERED: FUROSEMIDE 40 MG/4 ML INJ IV NR (16:00)
--- NOTE | 2022-05-23 17:15 | Progress Note ---
Assessment and Plan Assessment and plan: Hospital course: 05/22/2022. Patient remains on nonrebreather with altered mentation. Dr. Whittaker reportedly discussed with family at bedside hospice and DNR CODE STATUS. Paperwork signed but order not placed in EMR. We will update records. Current IVF is d5NS with 20meq KCL. We will change IV fluid to half-normal saline 40 of KCl. Case management consult for hospice care. 05/23/2022. Continue aggressive repletion of potassium. New potassium of 3.0 (previously 2.6). Patient's mother is scheduled to come in 05/23/2022 to complete hospice paperwork. Continue medical management. #Hepatic encephalopathy #End-stage liver disease #Hyperammonemia -Patient's family has agreed to hospice care given his poor prognosis overall. Currently pending patient's mother to complete hospice paperwork. Case management/social work made aware. #Acute hypoxic respiratory failure - etiology: Volume overload in the setting of end-stage liver disease/failure - baseline oxygen requirements: Room air - supplemental oxygen: Venturi mask 15 L - Continue protocol: continue pulse oximetry, wean oxygen as tolerated, ordered incentive spirometry and educated patient on how to use it and its importance. Diuresis can be initiated once potassium level is within normal limits. - continue to monitor #Hypokalemiaimproving Potassium 2.6-->3.0 Continue aggressive repletion. Monitor with repeat BMP. #Moderate protein caloric malnutrition Albumin 2.7 #Advanced care planning -Disease education conducted, care plan discussed, diagnoses discussed, progn osis discussed, and patient acknowledges understanding with care plan -Time: +30 min Disposition Plan: Continue medical management Total Time Spent with Patient (Minutes): 45 minutes History Interval history: No acute events overnight. Hospitalist Physical - Constitutional Vitals: Temp Pulse Resp BP Pulse Ox 97.9 F 85 18 139/68 90 05/23/22 11:22 05/23/22 11:22 05/23/22 11:22 05/23/22 11:22 05/23/22 11:22 General appearance: Present: mild distress, other (Jaundiced and sick appearing overall) - EENT Eyes: Present: PERRL, EOM intact, scleral icterus ENT: hearing intact, clear oral mucosa - Neck Neck: Present: supple, normal ROM - Respiratory Respiratory effort: labored Respiratory: bilateral: diminished (On 15 L Venturi mask) - Cardiovascular Rhythm: regular Heart Sounds: Present: S1 & S2 - Extremities Extremities: no ischemia, pulses intact, pulses symmetrical, No edema, normal temperature, normal color Peripheral Pulses: within normal limits - Abdominal General gastrointestinal: soft, non-tender, non-distended, normal bowel sounds - Integumentary Integumentary: Present: warm, dry, jaundice - Psychiatric Psychiatric: other (Unable to assess given patient's clinical status) - Neurologic Neurologic: other (Unable to assess given patient's clinical status) - Allied Health Allied health notes reviewed: nursing, case management HEART Score - HEART Score Troponin: Troponin T < 0.010 ng/mL (0.00-0.029) 05/20/22 09:57 Results - Labs CBC & Chem 7: 05/23/22 05:40 05/23/22 06:58 Labs: Laboratory Last Values WBC 14.8 K/mm3 (4.5-11.0) H 05/23/22 05:40 RBC 3.91 M/mm3 (3.65-5.03) 05/23/22 05:40 Hgb 13.9 gm/dl (11.8-15.2) 05/23/22 05:40 Hct 39.9 % (35.5-45.6) D 05/23/22 05:40 MCV 102 fl (84-94) H 05/23/22 05:40 MCH 36 pg (28-32) H 05/23/22 05:40 MCHC 35 % (32-34) H 05/23/22 05:40 RDW 15.2 % (13.2-15.2) 05/23/22 05:40 Plt Count 78 K/mm3 (140-440) L 05/23/22 05:40 Lymph % (Auto) 10.1 % (13.4-35.0) L 05/23/22 05:40 Levy % (Auto) 7.5 % (0.0-7.3) H 05/23/22 05:40 Eos % (Auto) 0.0 % (0.0-4.3) 05/23/22 05:40 Baso % (Auto) 0.3 % (0.0-1.8) 05/23/22 05:40 Lymph # (Auto) 1.5 K/mm3 (1.2-5.4) 05/23/22 05:40 Levy # (Auto) 1.1 K/mm3 (0.0-0.8) H 05/23/22 05:40 Eos # (Auto) 0.0 K/mm3 (0.0-0.4) 05/23/22 05:40 Baso # (Auto) 0.0 K/mm3 (0.0-0.1) 05/23/22 05:40 Seg Neutrophils % 82.1 % (40.0-70.0) H 05/23/22 05:40 Seg Neutrophils # 12.2 K/mm3 (1.8-7.7) H 05/23/22 05:40 PT 19.7 Sec. (12.2-14.9) H 05/20/22 09:57 INR 1.48 (0.87-1.13) H 05/20/22 09:57 Sodium 151 mmol/L (137-145) H 05/23/22 06:58 Potassium 3.0 mmol/L (3.6-5.0) L 05/23/22 06:58 Chloride 115.0 mmol/L (98-107) H 05/23/22 06:58 Carbon Dioxide 26 mmol/L (22-30) 05/23/22 06:58 Anion Gap 13 mmol/L 05/23/22 06:58 BUN 15 mg/dL (9-20) 05/23/22 06:58 Creatinine 1.0 mg/dL (0.8-1.3) 05/23/22 06:58 Estimated GFR > 60 ml/min 05/23/22 06:58 BUN/Creatinine Ratio 15 % 05/23/22 06:58 Glucose 121 mg/dL (75-100) H 05/23/22 06:58 POC Glucose 144 mg/dL (70-105) H 05/22/22 15:24 Lactic Acid 3.90 mmol/L (0.7-2.0) H* 05/20/22 09:57 Calcium 9.8 mg/dL (8.4-10.2) 05/23/22 06:58 Phosphorus 3.10 mg/dL (2.5-4.5) D 05/22/22 05:40 Magnesium 2.00 mg/dL (1.7-2.3) 05/22/22 05:40 Total Bilirubin 10.90 mg/dL (0.1-1.2) H 05/21/22 04:00 AST 36 units/L (5-40) 05/21/22 04:00 ALT 18 units/L (7-56) 05/21/22 04:00 Alkaline Phosphatase 123 units/L (35-129) 05/21/22 04:00 Ammonia 74.0 umol/L (25-60) H 05/23/22 05:45 Total Creatine Kinase 186 units/L (55-170) H 05/20/22 09:57 Troponin T < 0.010 ng/mL (0.00-0.029) 05/20/22 09:57 Total Protein 7.0 g/dL (6.3-8.2) 05/21/22 04:00 Albumin 2.7 g/dL (3.9-5) L 05/21/22 04:00 Albumin/Globulin Ratio 0.6 % 05/21/22 04:00 Urine Color Dark yellow (Yellow) 05/21/22 01:30 Urine Turbidity Clear (Clear) 05/21/22 01:30 Specific [place] (Man) 1.005 (1.003-1.030) 05/21/22 01:30 Ur Protein (Man) 1+ mg/dL (Negative) 05/21/22 01:30 Ur Ketones (Man) Negative (Negative) 05/21/22 01:30 Ur Nitrite (Man) Negative (Negative) 05/21/22 01:30 Ur Reducing Substances Not Reportable 05/21/22 01:30 Urine Bilirubin (Man) Negative (Negative) 05/21/22 01:30 Urine Ictotest Not Reportable 05/21/22 01:30 Leukocyte Esterase (Man) Small (Negative) 05/21/22 01:30 Urine WBC (Auto) 7.0 /HPF (0.0-6.0) H 05/21/22 01:30 Urine RBC (Auto) 1.0 /HPF (0.0-6.0) 05/21/22 01:30 U Epithel Cells (Auto) < 1.0 /HPF (0-13.0) 05/21/22 01:30 Urine Bacteria (Auto) 1+ /HPF (Negative) 05/21/22 01:30 Urine RBC (Manual) 1+ (Negative) 05/21/22 01:30 Urine Mucus Few /HPF 05/21/22 01:30 Salicylates < 0.3 mg/dL (2.8-20.0) L 05/20/22 09:57 Urine Opiates Screen Negative 05/21/22 01:30 Urine Methadone Screen Negative 05/21/22 01:30 Acetaminophen 5.0 ug/mL (10.0-30.0) L 05/20/22 09:57 Ur Barbiturates Screen Negative 05/21/22 01:30 Ur Phencyclidine Scrn Negative 05/21/22 01:30 Ur Amphetamines Screen Negative 05/21/22 01:30 U Benzodiazepines Scrn Negative 05/21/22 01:30 Urine Cocaine Screen Negative 05/21/22 01:30 U Marijuana (THC) Screen Negative 05/21/22 01:30 Drugs of Abuse Note Disclamer 05/21/22 01:30 Plasma/Serum Alcohol < 0.01 % (0-0.07) 05/20/22 09:57 Carmen/IV: Voiding Method Condom Catheter Active Medications - Current Medications Current Medications: Generic Name Dose Route Start Last Admin Trade Name Freq PRN Reason Stop Dose Admin Acetaminophen 650 mg 05/20/22 13:20 Acetaminophen 325 Mg Tab PO Q4H PRN Pain MILD(1-3)/Fever >100.5/MART Albuterol 2.5 mg 05/20/22 13:20 Albuterol 2.5 Mg/3 Ml Nebu IH Q4HRT PRN Shortness Of Breath Clonidine HCl 0.2 mg 05/21/22 14:00 05/21/22 15:26 Clonidine Tts 0.2 Mg/24 Hr Patch TD 0.2 mg Lim ANTON Administration Furosemide 40 mg 05/23/22 16:00 05/23/22 16:51 Furosemide 40 Mg/4 Ml Inj IV 05/23/22 19:00 40 mg ONCE@1600 NR Administration Hydromorphone HCl 0.5 mg 05/20/22 13:20 Hydromorphone 0.5 Mg/0.5 Ml Inj IV Q3H PRN Pain , Severe (7-10) Ceftriaxone Sodium 1 gm in 50 mls @ 100 mls/hr 05/23/22 09:00 05/23/22 09:26 Rocephin/Ns 1 Gm/50 Ml IV 05/26/22 09:29 100 mls/hr Q24H ANTON Administration Protocol Ondansetron HCl 4 mg 05/20/22 13:20 Ondansetron 4 Mg/2 Ml Inj IV Q8H PRN Nausea And Vomiting Oxycodone/Acetaminophen 1 tab 05/20/22 13:20 Oxycodone /Acetaminophen 5-325mg Tab PO Q6H PRN Pain, Moderate (4-6) Sodium Chloride 10 ml 05/20/22 22:00 05/23/22 10:37 Sodium Chloride 0.9% 10 Ml Flush Syringe IV 10 ml BID ANTON Administration Sodium Chloride 10 ml 05/20/22 13:20 Sodium Chloride 0.9% 10 Ml Flush Syringe IV PRN PRN LINE FLUSH
[2022-05-24 08:54] LABS: Calcium 10.5 mg/dL (8.4-10.2)
[2022-05-24] MEDS: cefTRIAXone/NS 1 GM/50 ML 1 GM/50 ML BAG IV SCH (09:56)
[2022-05-24] MEDS: POTASSIUM CHLORIDE 10 MEQ 10 MEQ/100 ML BAG IV SCH ×4 (10:52→13:55)
[2022-05-24] MEDS ORDERED: FUROSEMIDE 40 MG/4 ML INJ IV NR (12:30)
[2022-05-24] MEDS ORDERED: ALBUMIN HUMAN 25% (25 GM/100 ML) INJ IV NR (12:30)
[2022-05-24] MEDS ORDERED: LACTULOSE 20 GM/30 ML ORAL LIQD PO SCH (13:00)
[2022-05-24] MEDS ORDERED: ACETAMINOPHEN 650 MG RECT SUPP PR PRN (13:30)
[2022-05-24] MEDS ORDERED: LACTATED RINGERS 1,000 ML IV ONE (14:00)
[2022-05-24] MEDS ORDERED: NORepinephrine/NS 8 MG-250 ML 8 MG/250 ML INFUS..BTL IV SCH (15:00)
--- NOTE | 2022-05-24 15:39 | Progress Note ---
Hospitalist Physical - Constitutional Vitals: Temp Pulse Resp BP Pulse Ox 101.5 F H 146 H 24 76/41 95 05/24/22 14:10 05/24/22 14:56 05/24/22 10:04 05/24/22 14:56 05/24/22 15:20 General appearance: Present: mild distress, other (Jaundiced and sick appearing overall) HEART Score - HEART Score Troponin: Troponin T < 0.010 ng/mL (0.00-0.029) 05/20/22 09:57 Results - Labs CBC & Chem 7: 05/23/22 05:40 05/24/22 07:51 Labs: Laboratory Last Values WBC 14.8 K/mm3 (4.5-11.0) H 05/23/22 05:40 RBC 3.91 M/mm3 (3.65-5.03) 05/23/22 05:40 Hgb 13.9 gm/dl (11.8-15.2) 05/23/22 05:40 Hct 39.9 % (35.5-45.6) D 05/23/22 05:40 MCV 102 fl (84-94) H 05/23/22 05:40 MCH 36 pg (28-32) H 05/23/22 05:40 MCHC 35 % (32-34) H 05/23/22 05:40 RDW 15.2 % (13.2-15.2) 05/23/22 05:40 Plt Count 78 K/mm3 (140-440) L 05/23/22 05:40 Lymph % (Auto) 10.1 % (13.4-35.0) L 05/23/22 05:40 [place] % (Auto) 7.5 % (0.0-7.3) H 05/23/22 05:40 Eos % (Auto) 0.0 % (0.0-4.3) 05/23/22 05:40 Baso % (Auto) 0.3 % (0.0-1.8) 05/23/22 05:40 Lymph # (Auto) 1.5 K/mm3 (1.2-5.4) 05/23/22 05:40 [place] # (Auto) 1.1 K/mm3 (0.0-0.8) H 05/23/22 05:40 Eos # (Auto) 0.0 K/mm3 (0.0-0.4) 05/23/22 05:40 Baso # (Auto) 0.0 K/mm3 (0.0-0.1) 05/23/22 05:40 Seg Neutrophils % 82.1 % (40.0-70.0) H 05/23/22 05:40 Seg Neutrophils # 12.2 K/mm3 (1.8-7.7) H 05/23/22 05:40 PT 19.7 Sec. (12.2-14.9) H 05/20/22 09:57 INR 1.48 (0.87-1.13) H 05/20/22 09:57 Sodium 156 mmol/L (137-145) H 05/24/22 07:51 Potassium 3.0 mmol/L (3.6-5.0) L 05/24/22 07:51 Chloride 118.7 mmol/L (98-107) H 05/24/22 07:51 Carbon Dioxide 26 mmol/L (22-30) 05/24/22 07:51 Anion Gap 14 mmol/L 05/24/22 07:51 BUN 24 mg/dL (9-20) H 05/24/22 07:51 Creatinine 1.4 mg/dL (0.8-1.3) H 05/24/22 07:51 Estimated GFR 53 ml/min 05/24/22 07:51 BUN/Creatinine Ratio 17 % 05/24/22 07:51 Glucose 111 mg/dL (75-100) H 05/24/22 07:51 POC Glucose 144 mg/dL (70-105) H 05/22/22 15:24 Lactic Acid 3.90 mmol/L (0.7-2.0) H* 05/20/22 09:57 Calcium 10.5 mg/dL (8.4-10.2) H 05/24/22 07:51 Phosphorus 3.10 mg/dL (2.5-4.5) D 05/22/22 05:40 Magnesium 2.00 mg/dL (1.7-2.3) 05/22/22 05:40 Total Bilirubin 10.90 mg/dL (0.1-1.2) H 05/21/22 04:00 AST 36 units/L (5-40) 05/21/22 04:00 ALT 18 units/L (7-56) 05/21/22 04:00 Alkaline Phosphatase 123 units/L (35-129) 05/21/22 04:00 Ammonia 74.0 umol/L (25-60) H 05/23/22 05:45 Total Creatine Kinase 186 units/L (55-170) H 05/20/22 09:57 Troponin T < 0.010 ng/mL (0.00-0.029) 05/20/22 09:57 Total Protein 7.0 g/dL (6.3-8.2) 05/21/22 04:00 Albumin 2.7 g/dL (3.9-5) L 05/21/22 04:00 Albumin/Globulin Ratio 0.6 % 05/21/22 04:00 Urine Color Dark yellow (Yellow) 05/21/22 01:30 Urine Turbidity Clear (Clear) 05/21/22 01:30 Specific [place] (Man) 1.005 (1.003-1.030) 05/21/22 01:30 Ur Protein (Man) 1+ mg/dL (Negative) 05/21/22 01:30 Ur Ketones (Man) Negative (Negative) 05/21/22 01:30 Ur Nitrite (Man) Negative (Negative) 05/21/22 01:30 Ur Reducing Substances Not Reportable 05/21/22 01:30 Urine Bilirubin (Man) Negative (Negative) 05/21/22 01:30 Urine Ictotest Not Reportable 05/21/22 01:30 Leukocyte Esterase (Man) Small (Negative) 05/21/22 01:30 Urine WBC (Auto) 7.0 /HPF (0.0-6.0) H 05/21/22 01:30 Urine RBC (Auto) 1.0 /HPF (0.0-6.0) 05/21/22 01:30 U Epithel Cells (Auto) < 1.0 /HPF (0-13.0) 05/21/22 01:30 Urine Bacteria (Auto) 1+ /HPF (Negative) 05/21/22 01:30 Urine RBC (Manual) 1+ (Negative) 05/21/22 01:30 Urine Mucus Few /HPF 05/21/22 01:30 Salicylates < 0.3 mg/dL (2.8-20.0) L 05/20/22 09:57 Urine Opiates Screen Negative 05/21/22 01:30 Urine Methadone Screen Negative 05/21/22 01:30 Acetaminophen 5.0 ug/mL (10.0-30.0) L 05/20/22 09:57 Ur Barbiturates Screen Negative 05/21/22 01:30 Ur Phencyclidine Scrn Negative 05/21/22 01:30 Ur Amphetamines Screen Negative 05/21/22 01:30 U Benzodiazepines Scrn Negative 05/21/22 01:30 Urine Cocaine Screen Negative 05/21/22 01:30 U Marijuana (THC) Screen Negative 05/21/22 01:30 Drugs of Abuse Note Disclamer 05/21/22 01:30 Plasma/Serum Alcohol < 0.01 % (0-0.07) 05/20/22 09:57 Carmen/IV: Voiding Method Condom Catheter Active Medications - Current Medications Current Medications: Generic Name Dose Route Start Last Admin Trade Name Freq PRN Reason Stop Dose Admin Acetaminophen 650 mg 05/24/22 13:30 05/24/22 14:12 Acetaminophen 650 Mg Rect Supp [place] 650 mg Q6H PRN Administration Fever >101 Albumin Human 25 gm 05/24/22 12:30 05/24/22 12:50 Albumin Human 25% (25 Gm/100 Ml) Inj IV 05/24/22 18:00 25 gm ONCE@1230 NR Administration Albuterol 2.5 mg 05/20/22 13:20 Albuterol 2.5 Mg/3 Ml Nebu IH Q4HRT PRN Shortness Of Breath Clonidine HCl 0.2 mg 05/21/22 14:00 05/21/22 15:26 Clonidine Tts 0.2 Mg/24 Hr Patch TD 0.2 mg Lim ANTON Administration Furosemide 40 mg 05/24/22 12:30 05/24/22 12:52 Furosemide 40 Mg/4 Ml Inj IV 05/24/22 18:00 40 mg ONCE@1230 NR Administration Hydromorphone HCl 0.5 mg 05/20/22 13:20 Hydromorphone 0.5 Mg/0.5 Ml Inj IV Q3H PRN Pain , Severe (7-10) Ceftriaxone Sodium 1 gm in 50 mls @ 100 mls/hr 05/23/22 09:00 09/07/22 09:56 Rocephin/Ns 1 Gm/50 Ml IV 05/26/22 09:29 100 mls/hr Q24H ANTON Administration Protocol Potassium Chloride 10 meq in 100 mls @ 100 mls/hr 05/24/22 16:00 Kcl 10meq/100ml IV 05/24/22 19:59 Q1H ANTON NORepinephrine/NS 8 MG-250 ML 8 mg in 250 mls @ 3.75 mls/hr 05/24/22 15:00 Norepinephrine/Ns 8 Mg-250 Ml (Double Conc) IV TITRATE ANTON Protocol 2 MCG/MIN Lactulose 20 gm 05/24/22 13:00 05/24/22 13:24 Lactulose 20 Gm/30 Ml Oral Liqd PO 20 gm Q6HR ANTON Administration Ondansetron HCl 4 mg 05/20/22 13:20 Ondansetron 4 Mg/2 Ml Inj IV Q8H PRN Nausea And Vomiting Oxycodone/Acetaminophen 1 tab 05/20/22 13:20 Oxycodone /Acetaminophen 5-325mg Tab PO Q6H PRN Pain, Moderate (4-6) Sodium Chloride 10 ml 05/20/22 22:00 05/24/22 09:56 Sodium Chloride 0.9% 10 Ml Flush Syringe IV 10 ml BID ANTON Administration Sodium Chloride 10 ml 05/20/22 13:20 Sodium Chloride 0.9% 10 Ml Flush Syringe IV PRN PRN LINE FLUSH
[2022-05-24] MEDS ORDERED: POTASSIUM CHLORIDE 10 MEQ 10 MEQ/100 ML BAG IV SCH (16:00)
--- NOTE | 2022-05-24 16:06 | Death Note ---
Note Date of : 05/24/22 Time of : 16:00 Time Pronounced: 16:00
[2022-05-24 16:36] VITALS: BP 43/27
== END 2022-05-24 16:00 | DRG 441 ==
LOC: ED 09:05 → 3A 13:20 → CC1 05-24 15:35
PROVIDERS: ADMIT Internal Medicine; ATTEND Student in an Organized Health Care Education/Training Program
PROC: 06HY33Z Insertion of Infusion Device into Lower Vein, Percutaneous Approach (ICD-10-PCS; principal; 2022-05-20)
PROC: B54BZZA Ultrasonography of Right Lower Extremity Veins, Guidance (ICD-10-PCS; 2022-05-20)
DX: K72.90 Hepatic failure, unspecified without coma (principal); J96.01 Acute respiratory failure with hypoxia; N18.6 End stage renal disease; E72.20 Disorder of urea cycle metabolism, unspecified; E87.0 Hyperosmolality and hypernatremia; E44.0 Moderate protein-calorie malnutrition; D69.6 Thrombocytopenia, unspecified; B19.20 Unspecified viral hepatitis C without hepatic coma; K74.60 Unspecified cirrhosis of liver; E87.6 Hypokalemia; I48.91 Unspecified atrial fibrillation; E78.5 Hyperlipidemia, unspecified; F10.20 Alcohol dependence, uncomplicated; Y90.9 Presence of alcohol in blood, level not specified; Z82.49 Family history of ischemic heart disease and other diseases of the circulatory system
CPT/HCPCS: 36415; 71045; 80048; 80053; 80307; 80320; 81001; 82140; 82550; 82962; 83735; 84100; 84132; 84484; 85025; 85610; 93005; 94640; 94760; G0378; J3480; J3490; G0480; J0696; J1940; J2060; J3475; J7030; J7040; J7120; P9047